=== PATIENT | female | born 1935 | race Caucasian/White ===

== ENCOUNTER 2021-01-11 08:00 | Inpatient (IN) ==
[2021-01-11] MEDS ORDERED: GLUCAGON 1 MG VIAL IM PRN ×2 (09:39)
[2021-01-11] MEDS ORDERED: DEXTROSE 50% 25 GM/50 ML VIAL IV PRN ×2 (09:39)
[2021-01-11] MEDS ORDERED: SODIUM CHLORIDE 0.9% 1,000 ML IV SCH (10:00)
[2021-01-11 10:12] LABS: Basophils % 0.4 % (0.0-0.8); Eosinophils # 0.1 10*3/uL (0.0-0.87); Eosinophils % 0.9 % (0.00-10.9); Hematocrit 33.4 VOL% (35.7-47.0); Hemoglobin 10.7 GM/DL (12.0-16.0); Immature Granulocytes % 0.3 %; Immature Granulocytes Absolute 0.03 #; Lymphocytes # 1.6 10*3/uL (1.4-4.0); Lymphocytes % 17.9 % (21.3-54.2); Mean Corpuscular Volume 99.7 FL (87-102); Mean Platelet Volume 9.6 FL (9.6-12.0); Monocytes % 10.1 % (1.7-12.7); Neutrophils % 70.4 % (38.7-73.9); Platelet Count 299 T/CUMM (130-400); Red Blood Count 3.35 MC/CUMM (3.8-5.5); Red Cell Distribution Width 14.6 % (9.3-17.3); White Blood Count 8.9 T/CUMM (4-12)
[2021-01-11 10:45] LABS: Alanine Aminotransferase 19 U/L (13-56); Albumin 3.2 G/DL (3.4-5.0); Alkaline Phosphatase 84 U/L (45-117); Aspartate Amino Transferase 12 U/L (0-37); Bilirubin,Total < 0.39 MG/DL (0.20-1.00); Blood Urea Nitrogen 25 MG/DL (7-18); Calcium 8.7 MG/DL (8.5-10.1); Carbon Dioxide 27 MMOL/L (21-32); Estimated Glom Filtration Rate 66 ML/MIN; Glucose 96 MG/DL (74-106); Potassium 4.1 MMOL/L (3.5-5.1); Sodium 143 MMOL/L (136-145); Total Protein 6.4 G/DL (6.4-8.2)
[2021-01-11 11:19] LABS: ABG Base Excess 2.9 MMOL/L (-2.5-2.5); ABG HCO3 26.9 MMOL/L (20-26); ABG Oxygen Saturation 94.6 % (95-100); ABG PCO2 47.5 MM HG (35-48); ABG PH 7.386 (7.35-7.45); ABG PO2 73.6 MM HG (80-95); ABG TCO2 25.9 MMOL/L (23-27)
[2021-01-11] MEDS ORDERED: PANTOPRAZOLE 40 MG TABLET PO ONE (11:40)
[2021-01-11] MEDS ORDERED: DIAZEPAM 5 MG TABLET PO ONE (11:40)
[2021-01-11] MEDS ORDERED: DILTIAZEM 30 MG TABLET PO PRN (12:28)
[2021-01-11] MEDS ORDERED: NITROGLYCERIN SL 0.4 MG TABLET SL PRN (12:31)
[2021-01-11] MEDS ORDERED: MORPHINE 2 MG/1 ML SYRINGE IV PRN (12:31)
[2021-01-11] MEDS ORDERED: CLORAZEPATE 3.75 MG TABLET PO PRN (12:31)
[2021-01-11] MEDS: INSULIN REGULAR 100 UNIT/ML SUBCUT SCH ×3 (14:29→20:26)
[2021-01-11] MEDS: CHLORHEXIDINE 0.12% ORAL RINSE 60 ML BOTTLE SWISH/SPIT SCH ×2 (15:03→21:19)
[2021-01-11] MEDS: CHLORHEXIDINE 4% SOLN 118 ML BOTTLE TOP SCH ×3 (15:04→21:19)
[2021-01-11] MEDS ORDERED: TEMAZEPAM 15 MG CAPSULE PO SCH (21:00)
[2021-01-11] MEDS ORDERED: GABAPENTIN 600 MG TABLET PO SCH (21:00)
[2021-01-11] MEDS: COLCHICINE 0.6 MG CAPSULE PO SCH (21:12)
[2021-01-12] MEDS ORDERED: PAPAVERINE 60 MG/2 ML VIAL ONE (04:21)
[2021-01-12] MEDS ORDERED: VANCOMYCIN 1,000 MG VIAL ONE (04:22)
[2021-01-12] MEDS ORDERED: VANCOMYCIN 500 MG VIAL ONE (04:22)
[2021-01-12] MEDS ORDERED: CEFUROXIME INJ 1,500 MG in SODIUM CHLORIDE 0.9% 100 ML IV ONE (05:00)
[2021-01-12] MEDS ORDERED: CHLORHEXIDINE 4% SOLN 118 ML BOTTLE TOP ONE (05:00)
[2021-01-12] MEDS ORDERED: PANTOPRAZOLE 40 MG TABLET PO ONE (06:00)
[2021-01-12] MEDS ORDERED: DIAZEPAM 5 MG TABLET PO ONE (06:00)
[2021-01-12] MEDS ORDERED: MIDAZOLAM 10 MG/2 ML VIAL ONE ×3 (06:07→08:49)
[2021-01-12] MEDS ORDERED: SUFentanil 250 MCG/5 ML AMP ONE ×2 (06:08)
[2021-01-12 07:46] LABS: ABG Base Excess 3.4 MMOL/L (-2.5-2.5); ABG HCO3 27.5 MMOL/L (20-26); ABG PCO2 39.4 MM HG (35-48); ABG PH 7.452 (7.35-7.45); ABG TCO2 24.9 MMOL/L (23-27); Glucose Heart Surgery 118 MG/DL (74-106); Hematocrit Heart Surgery 31.5 PERCENT (37-47); Hemoglobin Heart Surgery 10.2 G/DL (12.0-16.0); Ionized Calcium Arterial 1.19 MMOL/L (1.21-1.46); PCO2 Patient Temp Arterial 39.4 MMHG; PH Patient Temp Arterial 7.452; Patient Temperature 37 CELCIUS; Potassium Heart/CVR 3.7 MMOL/L (3.5-5.1); Sodium Heart/CVR 144 MMOL/L (135-145)
[2021-01-12] MEDS: INSULIN REGULAR 100 UNIT/ML SUBCUT SCH (07:57)
[2021-01-12] MEDS: COLCHICINE 0.6 MG CAPSULE PO SCH (08:06)
[2021-01-12] MEDS: CHLORHEXIDINE 0.12% ORAL RINSE 60 ML BOTTLE SWISH/SPIT SCH ×2 (08:06→21:10)
[2021-01-12] MEDS ORDERED: POTASSIUM CHLORIDE RIDER 20 MEQ/100 ML PREMIX IV ONE (08:14)
[2021-01-12] MEDS ORDERED: NITROPRUSSIDE 50 MG/2 ML VIAL ONE (08:14)
[2021-01-12] MEDS ORDERED: SODIUM BICARBONATE 50 MEQ/50 ML VIAL IV ONE ×2 (08:14→09:41)
[2021-01-12] MEDS ORDERED: CALCIUM CHLORIDE 1,000 MG/10 ML SYRINGE IV ONE (08:15)
[2021-01-12] MEDS ORDERED: EPINEPHrine 1 MG/10 ML SYRINGE ONE (08:15)
[2021-01-12] MEDS ORDERED: ALBUMIN 5% 12.5 GM/250 ML VIAL IV ONE ×2 (08:15→08:16)
[2021-01-12] MEDS ORDERED: HEPARIN/NACL 0.9% 2 UNITS/ML 1,000 UNIT/500 ML BAG IV ONE (08:34)
[2021-01-12 08:37] LABS: Hematocrit Heart Surgery 20.6 PERCENT (37-47); Hemoglobin Heart Surgery 6.6 G/DL (12.0-16.0); PCO2 Patient Temp Venous 32.3 MM HG; PH Patient Temp Venous 7.52; PO2 Patient Temp Venous 31.7 MM HG; VBG Base Excess 3.7 MEQ/L (0-4); VBG HCO3 27.5 MEQ/L (24-28); VBG Oxygen Saturation 76.7 %; VBG PCO2 37.4 MMHG (41-51); VBG PH 7.475; VBG PO2 39.1 MMHG (17-40); VBG Total CO2 26.2 MMOL/L
[2021-01-12] MEDS ORDERED: VECURONIUM 10 MG VIAL IV ONE ×4 (08:49→08:52)
[2021-01-12] MEDS ORDERED: LIDOCAINE 2% 5 ML VIAL ONE ×2 (08:52→09:40)
[2021-01-12] MEDS ORDERED: ETOMIDATE 40 MG/20 ML VIAL IV ONE (08:52)
[2021-01-12] MEDS ORDERED: AMINOCAPROIC ACID 5,000 MG/20 ML VIAL ONE (08:52)
[2021-01-12] MEDS ORDERED: SODIUM CHLORIDE 0.9% 100 ML IV ONE ×2 (08:53→08:54)
[2021-01-12] MEDS ORDERED: SODIUM CHLORIDE 0.9% 1,000 ML IV ONE (08:53)
[2021-01-12] MEDS ORDERED: LACTATED RINGERS 1,000 ML IV ONE (08:53)
[2021-01-12] MEDS ORDERED: SODIUM CHLORIDE 0.9% 250 ML IV ONE (08:53)
[2021-01-12 09:07] LABS: Hematocrit Heart Surgery 20.4 PERCENT (37-47); Hemoglobin Heart Surgery 6.5 G/DL (12.0-16.0); PCO2 Patient Temp Venous 35.2 MM HG; PH Patient Temp Venous 7.496; PO2 Patient Temp Venous 34.7 MM HG; Potassium Heart/CVR 4.2 MMOL/L (3.5-5.1); VBG HCO3 27.8 MEQ/L (24-28); VBG Oxygen Saturation 76.5 %; VBG PCO2 38.8 MMHG (41-51); VBG PH 7.466; VBG PO2 39.8 MMHG (17-40); VBG Total CO2 26.6 MMOL/L
[2021-01-12] MEDS ORDERED: ESMOLOL 100 MG/10 ML VIAL IV ONE (09:08)
[2021-01-12] MEDS ORDERED: CALCIUM CHLORIDE 1,000 MG/10 ML VIAL IV ONE (09:09)
[2021-01-12 09:28] LABS: Bacteria,Urine Occasional /HPF (Few); Bilirubin,Urine Negative (Negative); Blood, Urine Negative (Negative); Glucose,Urine (UA) Negative (Negative); Ketones,Urine Negative (Negative); Mucus,Urine Occasional /LPF (Occasional); Nitrite,Urine Negative (Negative); Protein,Urine Negative; RBC,Urine 2 /HPF (0-4); Squamous Epithelial Cell,Urine Occasional /HPF (0-10); Urine Appearance CLEAR (Clear); Urine Color Colorless (Yellow); Urine Specific Gravity 1.005 (1.001-1.035); Urine Urobilinogen < 2.0 EU/DL (0.2-1.0)
[2021-01-12] MEDS ORDERED: DEXTROSE 5% KCL 20 MEQ 20 MEQ/1,000 ML BAG IV ONE (09:40)
[2021-01-12] MEDS ORDERED: MAGNESIUM SULFATE 5 GM/10 ML VIAL IV ONE (09:40)
[2021-01-12] MEDS ORDERED: MANNITOL 100 GM/500 ML BAG IV ONE (09:40)
[2021-01-12] MEDS ORDERED: ALBUMIN 25% 25 GM/100 ML VIAL IV ONE (09:40)
[2021-01-12] MEDS ORDERED: methylPREDNISolone SOD SUC 1,000 MG/8 ML VIAL ONE (09:40)
[2021-01-12] MEDS ORDERED: PROTAMINE SULFATE 50 MG/5 ML VIAL IV ONE ×2 (09:41→11:20)
[2021-01-12] MEDS ORDERED: HEPARIN 10,000 UNIT/10 ML VIAL ONE (09:41)
[2021-01-12] MEDS ORDERED: FUROSEMIDE 20 MG/2 ML VIAL ONE (09:41)
[2021-01-12] MEDS ORDERED: PROTAMINE SULFATE 250 MG/25 ML VIAL IV ONE (09:41)
[2021-01-12 09:56] LABS: ABG Base Excess -0.2 MMOL/L (-2.5-2.5); ABG HCO3 24.3 MMOL/L (20-26); ABG PCO2 36.1 MM HG (35-48); ABG PH 7.429 (7.35-7.45); ABG TCO2 22.3 MMOL/L (23-27); Glucose Heart Surgery 198 MG/DL (74-106); Hematocrit Heart Surgery 24.5 PERCENT (37-47); Hemoglobin Heart Surgery 7.9 G/DL (12.0-16.0); Ionized Calcium Arterial 1.24 MMOL/L (1.21-1.46); PCO2 Patient Temp Arterial 36.1 MMHG; PH Patient Temp Arterial 7.429; Patient Temperature 37 CELCIUS; Potassium Heart/CVR 3.7 MMOL/L (3.5-5.1); Sodium Heart/CVR 136 MMOL/L (135-145)
[2021-01-12] MEDS: SODIUM CHLORIDE 0.45% 1,000 ML IV SCH (10:29)
[2021-01-12] MEDS ORDERED: SEVOFLURANE 1 UNIT/15 MINUTE INH ONE (10:35)
[2021-01-12] MEDS ORDERED: MAGNESIUM SULF RIDER 4 GM/100 ML PREMIX IV PRN (10:45)
[2021-01-12] MEDS ORDERED: INSULIN REGULAR 100 UNIT/ML IV PRN (10:45)
[2021-01-12] MEDS ORDERED: INSULIN REGULAR 100 UNIT/ML IV ONE (10:45)
[2021-01-12] MEDS ORDERED: SODIUM CHLORIDE 0.45% 1,000 ML IV SCH (10:45)
[2021-01-12] MEDS ORDERED: DEXTROSE 50% 25 GM/50 ML VIAL IV PRN ×2 (10:45)
[2021-01-12] MEDS ORDERED: POTASSIUM CHLORIDE RIDER 10 MEQ/100 ML PREMIX IV PRN (10:45)
[2021-01-12] MEDS ORDERED: INSULIN REGULAR DRIP 100 ML IV SCH (10:45)
[2021-01-12] MEDS ORDERED: MIDAZOLAM 10 MG/2 ML VIAL IV PRN (10:45)
[2021-01-12] MEDS ORDERED: LACTATED RINGERS 250 ML IV PRN (10:45)
[2021-01-12] MEDS ORDERED: MIDAZOLAM 2 MG/2 ML VIAL IV PRN (10:45)
[2021-01-12] MEDS ORDERED: CALCIUM CHLORIDE 1,000 MG/10 ML SYRINGE IV PRN (10:45)
[2021-01-12] MEDS ORDERED: ACETAMINOPHEN 650 MG SUPP RECTAL PRN (10:45)
[2021-01-12] MEDS ORDERED: CHLORHEXIDINE 4% SOLN 118 ML BOTTLE TOP PRN (10:45)
[2021-01-12] MEDS ORDERED: MAGNESIUM SULF RIDER 2 GM/50 ML PREMIX IV PRN (10:45)
[2021-01-12] MEDS ORDERED: NITROPRUSSIDE 100 MG in DEXTROSE 5% 250 ML IV PRN (10:45)
[2021-01-12] MEDS ORDERED: ONDANSETRON 4 MG/2 ML VIAL IV PRN (10:45)
[2021-01-12] MEDS ORDERED: VECURONIUM 10 MG VIAL IV PRN ×2 (10:45)
[2021-01-12] MEDS ORDERED: PHENYLEPHRINE DRIP 40 MG/250 ML PREMIX IV PRN (10:45)
[2021-01-12 10:48] LABS: ABG Base Excess 0.9 MMOL/L (-2.5-2.5); ABG HCO3 25.2 MMOL/L (20-26); ABG PCO2 35.3 MM HG (35-48); ABG TCO2 22.3 MMOL/L (23-27); Glucose Heart Surgery 167 MG/DL (74-106); Hematocrit Heart Surgery 30.2 PERCENT (37-47); Hemoglobin Heart Surgery 9.7 G/DL (12.0-16.0); Potassium Heart/CVR 3.8 MMOL/L (3.5-5.1)
[2021-01-12 10:56] LABS: Basophils % 0.2 % (0.0-0.8); Eosinophils # 0.2 10*3/uL (0.0-0.87); Eosinophils % 1.7 % (0.00-10.9); Hematocrit 29.3 VOL% (35.7-47.0); Hemoglobin 9.6 GM/DL (12.0-16.0); Immature Granulocytes % 0.7 %; Immature Granulocytes Absolute 0.09 #; Lymphocytes # 1.1 10*3/uL (1.4-4.0); Lymphocytes % 7.9 % (21.3-54.2); Mean Corpuscular HGB Conc 32.8 GM/DL (32-36); Mean Corpuscular Volume 96.4 FL (87-102); Mean Platelet Volume 9.9 FL (9.6-12.0); Neutrophils % 80.5 % (38.7-73.9); Platelet Count 229 T/CUMM (130-400); Red Blood Count 3.04 MC/CUMM (3.8-5.5); Red Cell Distribution Width 14.7 % (9.3-17.3); White Blood Count 13.3 T/CUMM (4-12)
[2021-01-12 11:04] LABS: INR 1.1; PT Patient Result 12.3 SECS (10.5-12.0); Partial Thromboplastin Time 28.3 SECS (23.9-33.8)
[2021-01-12] MEDS: POTASSIUM CHLORIDE RIDER 20 MEQ/100 ML PREMIX IV PRN ×2 (11:06→22:20)
[2021-01-12 11:11] LABS: Bilirubin,Total 0.5 MG/DL (0.20-1.00); Calcium 9.1 MG/DL (8.5-10.1); Osmolality,Calculated 283.4 MOS/KG (273-304); Potassium 3.8 MMOL/L (3.5-5.1); Total Protein 5.3 G/DL (6.4-8.2)
[2021-01-12 11:20] LABS: CKMB % 11.6 %
[2021-01-12 11:24] LABS: High Sensitive Troponin I* 3060.6 ng/L (0-54)
[2021-01-12] MEDS: ALBUMIN 5% 12.5 GM/250 ML VIAL IV PRN ×2 (11:43→16:00)
[2021-01-12 11:56] LABS: ABG Base Excess -0.7 MMOL/L (-2.5-2.5); ABG HCO3 23.9 MMOL/L (20-26); ABG PCO2 34.7 MM HG (35-48); ABG PH 7.433 (7.35-7.45); ABG TCO2 21.2 MMOL/L (23-27); Glucose Heart Surgery 169 MG/DL (74-106); Hematocrit Heart Surgery 29.3 PERCENT (37-47); Hemoglobin Heart Surgery 9.5 G/DL (12.0-16.0); Potassium Heart/CVR 4.3 MMOL/L (3.5-5.1)
[2021-01-12] MEDS ORDERED: NITROGLYCERIN DRIP 50 MG/250 ML BOTTLE IV ONE (12:25)
[2021-01-12] MEDS ORDERED: NITROGLYCERIN DRIP 50 MG/250 ML BOTTLE IV PRN (12:28)
[2021-01-12 15:52] LABS: ABG Base Excess 2.4 MMOL/L (-2.5-2.5); ABG Oxygen Saturation 97.2 % (95-100); ABG PCO2 36.4 MM HG (35-48); ABG PH 7.471 (7.35-7.45); ABG PO2 99.3 MM HG (80-95); ABG TCO2 27.1 MMOL/L (23-27); Glucose Heart Surgery 131 MG/DL (74-106); Hemoglobin Heart Surgery 10.5 G/DL (12.0-16.0); Potassium Heart/CVR 3.8 MMOL/L (3.5-5.1)
[2021-01-12] MEDS ORDERED: LACTATED RINGERS 1,000 ML IV PRN (16:42)
[2021-01-12] MEDS: CEFUROXIME INJ 1,500 MG in SODIUM CHLORIDE 0.9% 100 ML IV SCH (17:34)
[2021-01-12 17:45] LABS: ABG Base Excess 1.9 MMOL/L (-2.5-2.5); ABG HCO3 26.1 MMOL/L (20-26); ABG Oxygen Saturation 99.1 % (95-100); ABG PCO2 41.9 MM HG (35-48); ABG PH 7.412 (7.35-7.45); ABG TCO2 24.3 MMOL/L (23-27); Glucose Heart Surgery 144 MG/DL (74-106); Hematocrit Heart Surgery 29.7 PERCENT (37-47); Hemoglobin Heart Surgery 9.6 G/DL (12.0-16.0); Potassium Heart/CVR 4.7 MMOL/L (3.5-5.1)
[2021-01-12] MEDS: MORPHINE 2 MG/1 ML SYRINGE IV PRN ×2 (17:48→20:49)
[2021-01-12] MEDS: KETOROLAC 30 MG/1 ML VIAL IV SCH (18:32)
[2021-01-12 21:06] LABS: ABG Base Excess 1.5 MMOL/L (-2.5-2.5); ABG HCO3 25.7 MMOL/L (20-26); ABG Oxygen Saturation 97.2 % (95-100); ABG PCO2 41.8 MM HG (35-48); ABG PH 7.407 (7.35-7.45); ABG PO2 87.6 MM HG (80-95); Glucose Heart Surgery 141 MG/DL (74-106); Hematocrit Heart Surgery 29.4 PERCENT (37-47); Hemoglobin Heart Surgery 9.5 G/DL (12.0-16.0); Potassium Heart/CVR 4.1 MMOL/L (3.5-5.1)
[2021-01-12] MEDS ORDERED: FUROSEMIDE 40 MG/4 ML VIAL IV PRN (21:06)
[2021-01-12 21:36] LABS: CKMB % 16.2 %
[2021-01-12 22:00] LABS: ABG Base Excess 1.6 MMOL/L (-2.5-2.5); ABG HCO3 25.8 MMOL/L (20-26); ABG Oxygen Saturation 98.2 % (95-100); ABG PCO2 41.4 MM HG (35-48); ABG PH 7.411 (7.35-7.45); Glucose Heart Surgery 133 MG/DL (74-106); Hematocrit Heart Surgery 29.6 PERCENT (37-47); Hemoglobin Heart Surgery 9.6 G/DL (12.0-16.0); Potassium Heart/CVR 3.9 MMOL/L (3.5-5.1)
[2021-01-12] MEDS: MORPHINE 10 MG/1 ML VIAL IV PRN (22:43)
[2021-01-12 22:54] LABS: High Sensitive Troponin I* 44391.8 ng/L (0-54)
[2021-01-12 23:28] LABS: ABG Base Excess 1.1 MMOL/L (-2.5-2.5); ABG HCO3 25.6 MMOL/L (20-26); ABG Oxygen Saturation 96.5 % (95-100); ABG PH 7.424 (7.35-7.45); ABG PO2 90.5 MM HG (80-95); ABG TCO2 26.8 MMOL/L (23-27); Glucose Heart Surgery 114 MG/DL (74-106); Hemoglobin Heart Surgery 10.6 G/DL (12.0-16.0); Potassium Heart/CVR 4.8 MMOL/L (3.5-5.1)
[2021-01-13] MEDS: KETOROLAC 30 MG/1 ML VIAL IV SCH ×4 (00:36→18:47)
[2021-01-13 01:06] LABS: ABG Base Excess 1.9 MMOL/L (-2.5-2.5); ABG Oxygen Saturation 96.9 % (95-100); ABG PCO2 40.4 MM HG (35-48); ABG PH 7.423 (7.35-7.45); ABG PO2 84.5 MM HG (80-95); Glucose Heart Surgery 137 MG/DL (74-106); Hematocrit Heart Surgery 39.8 PERCENT (37-47); Hemoglobin Heart Surgery 12.9 G/DL (12.0-16.0); Potassium Heart/CVR 4.5 MMOL/L (3.5-5.1)
[2021-01-13] MEDS: METOPROLOL TARTRATE 25 MG TABLET PO SCH ×3 (01:42→20:45)
[2021-01-13] MEDS: DILTIAZEM 60 MG TABLET PO SCH ×2 (01:42→09:34)
[2021-01-13] MEDS: MORPHINE 10 MG/1 ML VIAL IV PRN (02:34)
[2021-01-13 03:08] LABS: Basophils % 0.1 % (0.0-0.8); Hematocrit 31.4 VOL% (35.7-47.0); Hemoglobin 10.4 GM/DL (12.0-16.0); Immature Granulocytes % 0.4 %; Immature Granulocytes Absolute 0.05 #; Lymphocytes # 0.6 10*3/uL (1.4-4.0); Lymphocytes % 4.7 % (21.3-54.2); Mean Corpuscular HGB Conc 33.1 GM/DL (32-36); Mean Corpuscular Volume 91.5 FL (87-102); Mean Platelet Volume 10.3 FL (9.6-12.0); Monocytes % 5.4 % (1.7-12.7); Neutrophils % 89.4 % (38.7-73.9); Platelet Count 224 T/CUMM (130-400); Red Blood Count 3.43 MC/CUMM (3.8-5.5); Red Cell Distribution Width 16.7 % (9.3-17.3); White Blood Count 12.7 T/CUMM (4-12)
[2021-01-13 03:12] LABS: ABG Base Excess 1.8 MMOL/L (-2.5-2.5); ABG Oxygen Saturation 97.3 % (95-100); ABG PCO2 42.4 MM HG (35-48); ABG PH 7.407 (7.35-7.45); ABG PO2 88.4 MM HG (80-95); ABG TCO2 24.1 MMOL/L (23-27); Glucose Heart Surgery 126 MG/DL (74-106); Hematocrit Heart Surgery 32.7 PERCENT (37-47); Hemoglobin Heart Surgery 10.6 G/DL (12.0-16.0); Potassium Heart/CVR 4.1 MMOL/L (3.5-5.1)
[2021-01-13 03:34] LABS: Albumin 3.5 G/DL (3.4-5.0); Bilirubin,Direct 0.13 MG/DL (0.0-0.20); Bilirubin,Total 0.5 MG/DL (0.20-1.00); Calcium 8.5 MG/DL (8.5-10.1); Osmolality,Calculated 285.3 MOS/KG (273-304); Potassium 4.1 MMOL/L (3.5-5.1); Total Protein 5.7 G/DL (6.4-8.2)
[2021-01-13 03:42] LABS: CKMB % 14.3 %; High Sensitive Troponin I* 51947.2 ng/L (0-54)
[2021-01-13 03:51] LABS: Lymphocytes 4 % (20-55); Segmented Neutrophils 94 % (50-85); Total Cells Counted 100
[2021-01-13 03:52] LABS: Microcytosis 1+
[2021-01-13 03:53] LABS: Platelet Estimate Adequate; Spherocytes Slight
[2021-01-13] MEDS: POTASSIUM CHLORIDE RIDER 20 MEQ/100 ML PREMIX IV PRN (04:14)
[2021-01-13] MEDS: MORPHINE 2 MG/1 ML SYRINGE IV PRN (04:48)
[2021-01-13] MEDS: CEFUROXIME INJ 1,500 MG in SODIUM CHLORIDE 0.9% 100 ML IV SCH (06:02)
[2021-01-13] MEDS ORDERED: OXYMETAZOLINE 0.05% NASAL SPRAY 15 ML BOTTLE BOTH NARES PRN (07:10)
[2021-01-13] MEDS ORDERED: INSULIN REGULAR 100 UNIT/ML SUBCUT SCH (08:00)
[2021-01-13] MEDS: CHLORHEXIDINE 0.12% ORAL RINSE 60 ML BOTTLE SWISH/SPIT SCH ×2 (08:15→23:40)
[2021-01-13] MEDS: oxyCODONE/ACETAMINOPHEN 5-325 MG TABLET PO PRN ×2 (09:15→22:06)
[2021-01-13] MEDS: DILTIAZEM 30 MG TABLET PO SCH ×3 (09:37→20:45)
[2021-01-13] MEDS ORDERED: METHEN/SOD PHOS/METH BLUE/HYOS TABLET PO SCH (11:10)
[2021-01-13] MEDS ORDERED: ALUMINUM/MAGNES/SIMETH MAX STR 30 ML UDCUP PO PRN (11:32)
[2021-01-13] MEDS ORDERED: MAGNESIUM SULF RIDER 2 GM/50 ML PREMIX IV PRN (11:32)
[2021-01-13] MEDS ORDERED: MAGNESIUM HYDROXIDE SUSP 30 ML UDCUP PO PRN (11:32)
[2021-01-13] MEDS ORDERED: KETOROLAC 30 MG/1 ML VIAL IV SCH (11:32)
[2021-01-13] MEDS ORDERED: DEXTROSE 50% 25 GM/50 ML VIAL IV PRN ×2 (11:32)
[2021-01-13] MEDS ORDERED: GLUCAGON 1 MG VIAL IM PRN ×2 (11:32)
[2021-01-13] MEDS ORDERED: POTASSIUM CHLORIDE 20 MEQ TABLET PO PRN (11:32)
[2021-01-13] MEDS ORDERED: SODIUM CHLOR 0.45% KCL 20 MEQ 20 MEQ/1,000 ML BAG IV SCH (11:32)
[2021-01-13] MEDS ORDERED: ACETAMINOPHEN 325 MG TABLET PO PRN (11:32)
[2021-01-13] MEDS ORDERED: MAGNESIUM SULF RIDER 4 GM/100 ML PREMIX IV PRN (11:32)
[2021-01-13] MEDS ORDERED: ZALEPLON 5 MG CAPSULE PO PRN (11:32)
[2021-01-13] MEDS: METHEN/SOD PHOS/METH BLUE/HYOS TABLET PO PRN ×2 (11:37→20:47)
[2021-01-13] MEDS: SODIUM CHLORIDE 0.45% 1,000 ML IV SCH (11:47)
[2021-01-13] MEDS ORDERED: SODIUM PHOSPHATE ENEMA 133 ML BOTTLE RECTAL ONE (12:45)
[2021-01-13] MEDS ORDERED: GLYCERIN ADULT SUPP RECTAL ONE (13:21)
[2021-01-13 14:43] LABS: CKMB % 9.9 %; High Sensitive Troponin I* 33305.7 ng/L (0-54)
[2021-01-13] MEDS: CLORAZEPATE 3.75 MG TABLET PO PRN ×2 (15:06→20:46)
[2021-01-13] MEDS ORDERED: POLYETHYLENE GLYCOL POWDER 17 GM PACK PO PRN (18:14)
[2021-01-13] MEDS: OLMESARTAN 20 MG TABLET PO SCH (20:44)
[2021-01-13] MEDS: HYDROmorphone 2 MG/1 ML VIAL IV PRN (22:46)
[2021-01-14] MEDS: KETOROLAC 30 MG/1 ML VIAL IV SCH (00:22)
[2021-01-14] MEDS: ONDANSETRON 4 MG/2 ML VIAL IV PRN ×3 (00:22→13:49)
[2021-01-14] MEDS: CLORAZEPATE 3.75 MG TABLET PO PRN ×3 (04:33→15:49)
[2021-01-14 04:45] LABS: Basophils % 0.1 % (0.0-0.8); Hematocrit 36.1 VOL% (35.7-47.0); Hemoglobin 11.2 GM/DL (12.0-16.0); Immature Granulocytes % 0.5 %; Immature Granulocytes Absolute 0.08 #; Lymphocytes # 1.2 10*3/uL (1.4-4.0); Lymphocytes % 7.5 % (21.3-54.2); Mean Corpuscular Volume 95.5 FL (87-102); Mean Platelet Volume 10.8 FL (9.6-12.0); Monocytes % 8.8 % (1.7-12.7); Neutrophils % 83.1 % (38.7-73.9); Platelet Count 226 T/CUMM (130-400); Red Blood Count 3.78 MC/CUMM (3.8-5.5); Red Cell Distribution Width 16.7 % (9.3-17.3); White Blood Count 16.3 T/CUMM (4-12)
[2021-01-14 05:15] LABS: Alanine Aminotransferase 93 U/L (13-56); Albumin 3.3 G/DL (3.4-5.0); Alkaline Phosphatase 82 U/L (45-117); Aspartate Amino Transferase 142 U/L (0-37); Bilirubin,Direct < 0.100 MG/DL (0.0-0.20); Bilirubin,Indirect 0.4 MG/DL (0.0-1.0); Blood Urea Nitrogen 47 MG/DL (7-18); CKMB % 5.5 %; Calcium 8.4 MG/DL (8.5-10.1); Carbon Dioxide 28 MMOL/L (21-32); Estimated Glom Filtration Rate 52 ML/MIN; Glucose 169 MG/DL (74-106); Potassium 4.8 MMOL/L (3.5-5.1); Sodium 136 MMOL/L (136-145); Total Protein 6.1 G/DL (6.4-8.2)
[2021-01-14] MEDS ORDERED: FUROSEMIDE 40 MG/4 ML VIAL IV ONE (06:00)
[2021-01-14] MEDS: oxyCODONE/ACETAMINOPHEN 5-325 MG TABLET PO PRN ×2 (06:25→18:04)
[2021-01-14] MEDS ORDERED: PANTOPRAZOLE 40 MG TABLET PO SCH (09:00)
[2021-01-14] MEDS: DOXAZOSIN 1 MG TABLET PO SCH (09:21)
[2021-01-14] MEDS: FERROUS SULFATE 325 MG TABLET PO SCH (09:21)
[2021-01-14] MEDS: DOCUSATE SODIUM 100 MG CAPSULE PO SCH (09:21)
[2021-01-14] MEDS: DILTIAZEM 30 MG TABLET PO SCH ×3 (09:21→20:52)
[2021-01-14] MEDS: METOPROLOL TARTRATE 25 MG TABLET PO SCH ×2 (09:21→20:52)
[2021-01-14] MEDS: metFORMIN 500 MG TABLET PO SCH (09:21)
[2021-01-14] MEDS: MELOXICAM 7.5 MG TABLET PO SCH (09:22)
[2021-01-14] MEDS: PANTOPRAZOLE 40 MG TABLET PO SCH (09:22)
[2021-01-14] MEDS: CHLORHEXIDINE 0.12% ORAL RINSE 60 ML BOTTLE SWISH/SPIT SCH (09:22)
[2021-01-14] MEDS: allopurinoL 300 MG TABLET PO SCH (09:22)
[2021-01-14] MEDS: POLYETHYLENE GLYCOL POWDER 17 GM PACK PO SCH (09:22)
[2021-01-14] MEDS: ASPIRIN EC 325 MG TABLET PO SCH (09:23)
[2021-01-14] MEDS: HYDROmorphone 2 MG/1 ML VIAL IV PRN ×2 (09:56→13:50)
[2021-01-14] MEDS ORDERED: ONDANSETRON 4 MG/2 ML VIAL IV PRN (17:07)
[2021-01-14] MEDS ORDERED: POTASSIUM CHLORIDE 20 MEQ TABLET PO PRN (17:07)
[2021-01-14] MEDS ORDERED: MAGNESIUM SULF RIDER 2 GM/50 ML PREMIX IV PRN (17:07)
[2021-01-14] MEDS ORDERED: ZALEPLON 5 MG CAPSULE PO PRN (17:07)
[2021-01-14] MEDS ORDERED: MAGNESIUM SULF RIDER 4 GM/100 ML PREMIX IV PRN (17:07)
[2021-01-14] MEDS ORDERED: GLUCAGON 1 MG VIAL IM PRN (17:07)
[2021-01-14] MEDS ORDERED: MAGNESIUM HYDROXIDE SUSP 30 ML UDCUP PO PRN (17:07)
[2021-01-14] MEDS ORDERED: DEXTROSE 50% 25 GM/50 ML VIAL IV PRN (17:07)
[2021-01-14] MEDS ORDERED: ALUMINUM/MAGNES/SIMETH MAX STR 30 ML UDCUP PO PRN (17:07)
[2021-01-14] MEDS ORDERED: ACETAMINOPHEN 325 MG TABLET PO PRN (17:07)
[2021-01-14] MEDS ORDERED: SODIUM PHOSPHATE ENEMA 133 ML BOTTLE RECTAL ONE (19:20)
[2021-01-14] MEDS: GABAPENTIN 600 MG TABLET PO SCH (20:52)
[2021-01-14] MEDS: TEMAZEPAM 15 MG CAPSULE PO SCH (20:52)
[2021-01-14] MEDS: OLMESARTAN 20 MG TABLET PO SCH (20:52)
[2021-01-15 05:13] LABS: Basophils % 0.1 % (0.0-0.8); Eosinophils % 0.3 % (0.00-10.9); Hematocrit 30.7 VOL% (35.7-47.0); Immature Granulocytes % 0.5 %; Immature Granulocytes Absolute 0.05 #; Lymphocytes # 1.6 10*3/uL (1.4-4.0); Mean Corpuscular HGB Conc 32.6 GM/DL (32-36); Mean Corpuscular Volume 97.2 FL (87-102); Mean Platelet Volume 10.9 FL (9.6-12.0); Monocytes % 9.5 % (1.7-12.7); Neutrophils % 74.6 % (38.7-73.9); Platelet Count 183 T/CUMM (130-400); Red Blood Count 3.16 MC/CUMM (3.8-5.5); Red Cell Distribution Width 16.2 % (9.3-17.3); White Blood Count 10.4 T/CUMM (4-12)
[2021-01-15 05:33] LABS: Alanine Aminotransferase 66 U/L (13-56); Albumin 2.9 G/DL (3.4-5.0); Alkaline Phosphatase 70 U/L (45-117); Aspartate Amino Transferase 78 U/L (0-37); Bilirubin,Direct < 0.100 MG/DL (0.0-0.20); Bilirubin,Total < 0.39 MG/DL (0.20-1.00); Blood Urea Nitrogen 56 MG/DL (7-18); CKMB % 2.8 %; Calcium 8.2 MG/DL (8.5-10.1); Carbon Dioxide 32 MMOL/L (21-32); Estimated Glom Filtration Rate 59 ML/MIN; Glucose 105 MG/DL (74-106); Osmolality,Calculated 290.7 MOS/KG (273-304); Potassium 4.3 MMOL/L (3.5-5.1); Sodium 138 MMOL/L (136-145); Total Protein 5.4 G/DL (6.4-8.2)
[2021-01-15 05:38] LABS: Bilirubin,Indirect 0.3 MG/DL (0.0-1.0)
[2021-01-15] MEDS ORDERED: FUROSEMIDE 40 MG/4 ML VIAL IV ONE (06:00)
[2021-01-15] MEDS: MELOXICAM 7.5 MG TABLET PO SCH (09:17)
[2021-01-15] MEDS: POLYETHYLENE GLYCOL POWDER 17 GM PACK PO SCH (09:17)
[2021-01-15] MEDS: DOXAZOSIN 1 MG TABLET PO SCH (09:17)
[2021-01-15] MEDS: FERROUS SULFATE 325 MG TABLET PO SCH (09:17)
[2021-01-15] MEDS: DOCUSATE SODIUM 100 MG CAPSULE PO SCH (09:17)
[2021-01-15] MEDS: COLCHICINE 0.6 MG CAPSULE PO SCH ×2 (09:17→20:24)
[2021-01-15] MEDS: ASPIRIN EC 325 MG TABLET PO SCH (09:18)
[2021-01-15] MEDS: METOPROLOL TARTRATE 25 MG TABLET PO SCH ×2 (09:18→20:23)
[2021-01-15] MEDS: allopurinoL 300 MG TABLET PO SCH (09:18)
[2021-01-15] MEDS: DILTIAZEM 30 MG TABLET PO SCH (09:19)
[2021-01-15] MEDS: metFORMIN 500 MG TABLET PO SCH (09:20)
[2021-01-15] MEDS: PANTOPRAZOLE 40 MG TABLET PO SCH (09:20)
[2021-01-15] MEDS: oxyCODONE/ACETAMINOPHEN 5-325 MG TABLET PO PRN ×2 (10:00→14:29)
[2021-01-15] MEDS ORDERED: AZITHROMYCIN 250 MG TABLET PO ONE (10:37)
[2021-01-15] MEDS: ALBUTEROL/IPRATROPIUM 3 ML NEB RESP TX SCH ×4 (11:06→23:40)
[2021-01-15] MEDS: INSULIN LISPRO 100 UNIT/ML SUBCUT SCH ×3 (12:52→20:23)
[2021-01-15] MEDS: ASCORBIC ACID 500 MG TABLET PO SCH (20:23)
[2021-01-15] MEDS: TEMAZEPAM 15 MG CAPSULE PO SCH (20:23)
[2021-01-15] MEDS: GABAPENTIN 600 MG TABLET PO SCH (20:23)
[2021-01-15] MEDS ORDERED: OLMESARTAN 5 MG TABLET PO SCH (21:00)
[2021-01-16 05:11] LABS: Basophils % 0.1 % (0.0-0.8); Eosinophils # 0.2 10*3/uL (0.0-0.87); Eosinophils % 1.5 % (0.00-10.9); Hematocrit 31.8 VOL% (35.7-47.0); Immature Granulocytes % 0.7 %; Immature Granulocytes Absolute 0.07 #; Lymphocytes # 1.4 10*3/uL (1.4-4.0); Mean Corpuscular HGB Conc 31.4 GM/DL (32-36); Mean Corpuscular Volume 97.8 FL (87-102); Mean Platelet Volume 10.9 FL (9.6-12.0); Neutrophils % 73.7 % (38.7-73.9); Platelet Count 194 T/CUMM (130-400); Red Blood Count 3.25 MC/CUMM (3.8-5.5); White Blood Count 9.8 T/CUMM (4-12)
[2021-01-16 05:21] LABS: Alanine Aminotransferase 68 U/L (13-56); Albumin 2.8 G/DL (3.4-5.0); Alkaline Phosphatase 72 U/L (45-117); Aspartate Amino Transferase 64 U/L (0-37); Bilirubin,Direct < 0.100 MG/DL (0.0-0.20); Bilirubin,Indirect 0.3 MG/DL (0.0-1.0); Blood Urea Nitrogen 56 MG/DL (7-18); Calcium 7.8 MG/DL (8.5-10.1); Carbon Dioxide 31 MMOL/L (21-32); Estimated Glom Filtration Rate 47 ML/MIN; Glucose 110 MG/DL (74-106); Osmolality,Calculated 299.1 MOS/KG (273-304); Potassium 4.2 MMOL/L (3.5-5.1); Sodium 142 MMOL/L (136-145); Total Protein 5.5 G/DL (6.4-8.2)
[2021-01-16] MEDS: ALBUTEROL/IPRATROPIUM 3 ML NEB RESP TX SCH ×4 (07:15→18:58)
[2021-01-16] MEDS ORDERED: AZITHROMYCIN 250 MG TABLET PO SCH (09:00)
[2021-01-16] MEDS: INSULIN LISPRO 100 UNIT/ML SUBCUT SCH ×4 (09:26→21:51)
[2021-01-16] MEDS: MELOXICAM 7.5 MG TABLET PO SCH (09:27)
[2021-01-16] MEDS: ASPIRIN EC 325 MG TABLET PO SCH (09:27)
[2021-01-16] MEDS: metFORMIN 500 MG TABLET PO SCH (09:27)
[2021-01-16] MEDS: PANTOPRAZOLE 40 MG TABLET PO SCH (09:27)
[2021-01-16] MEDS: POLYETHYLENE GLYCOL POWDER 17 GM PACK PO SCH (09:27)
[2021-01-16] MEDS: COLCHICINE 0.6 MG CAPSULE PO SCH (09:27)
[2021-01-16] MEDS: FERROUS SULFATE 325 MG TABLET PO SCH (09:28)
[2021-01-16] MEDS: ASCORBIC ACID 500 MG TABLET PO SCH ×2 (09:28→21:28)
[2021-01-16] MEDS: allopurinoL 300 MG TABLET PO SCH (09:28)
[2021-01-16] MEDS: DOCUSATE SODIUM 100 MG CAPSULE PO SCH (09:28)
[2021-01-16] MEDS: oxyCODONE/ACETAMINOPHEN 5-325 MG TABLET PO PRN ×3 (09:34→21:35)
[2021-01-16] MEDS: METOPROLOL TARTRATE 25 MG TABLET PO SCH (10:12)
[2021-01-16] MEDS ORDERED: KETOROLAC 15 MG/1 ML VIAL IV ONE (10:40)
[2021-01-16] MEDS ORDERED: AMIODARONE INJ 150 MG in DEXTROSE 5% 100 ML IV ONE (19:59)
[2021-01-16] MEDS ORDERED: DILTIAZEM 50 MG/10 ML VIAL IV ONE (20:06)
[2021-01-16] MEDS ORDERED: AMIODARONE INJ 450 MG in DEXTROSE 5% 241 ML IV SCH (20:30)
[2021-01-16] MEDS: GABAPENTIN 600 MG TABLET PO SCH (21:27)
[2021-01-16] MEDS: OLMESARTAN 5 MG TABLET PO SCH (21:27)
[2021-01-16] MEDS: TEMAZEPAM 15 MG CAPSULE PO SCH (21:27)
[2021-01-17] MEDS: ALBUTEROL/IPRATROPIUM 3 ML NEB RESP TX SCH ×5 (02:33→19:09)
[2021-01-17 05:40] LABS: Basophils % 0.1 % (0.0-0.8); Eosinophils # 0.4 10*3/uL (0.0-0.87); Eosinophils % 4.4 % (0.00-10.9); Hematocrit 30.9 VOL% (35.7-47.0); Hemoglobin 9.6 GM/DL (12.0-16.0); Immature Granulocytes % 0.9 %; Immature Granulocytes Absolute 0.09 #; Lymphocytes # 1.4 10*3/uL (1.4-4.0); Lymphocytes % 13.9 % (21.3-54.2); Mean Corpuscular HGB Conc 31.1 GM/DL (32-36); Mean Corpuscular Volume 99.4 FL (87-102); Mean Platelet Volume 11.2 FL (9.6-12.0); Monocytes % 11.4 % (1.7-12.7); Neutrophils % 69.3 % (38.7-73.9); Platelet Count 205 T/CUMM (130-400); Red Blood Count 3.11 MC/CUMM (3.8-5.5); Red Cell Distribution Width 16.3 % (9.3-17.3); White Blood Count 10.1 T/CUMM (4-12)
[2021-01-17 06:13] LABS: Alanine Aminotransferase 72 U/L (13-56); Albumin 2.8 G/DL (3.4-5.0); Alkaline Phosphatase 78 U/L (45-117); Aspartate Amino Transferase 108 U/L (0-37); Bilirubin,Direct < 0.100 MG/DL (0.0-0.20); Bilirubin,Indirect 0.3 MG/DL (0.0-1.0); Bilirubin,Total < 0.39 MG/DL (0.20-1.00); Blood Urea Nitrogen 44 MG/DL (7-18); CKMB % 10.7 %; Carbon Dioxide 30 MMOL/L (21-32); Estimated Glom Filtration Rate 47 ML/MIN; Glucose 131 MG/DL (74-106); Osmolality,Calculated 293.3 MOS/KG (273-304); Potassium 4.1 MMOL/L (3.5-5.1); Sodium 141 MMOL/L (136-145); Total Protein 5.5 G/DL (6.4-8.2)
[2021-01-17] MEDS: DILTIAZEM INJ 100 MG in SODIUM CHLORIDE 0.9% 100 ML IV SCH ×2 (06:23→21:58)
[2021-01-17] MEDS: INSULIN LISPRO 100 UNIT/ML SUBCUT SCH ×4 (07:58→21:30)
[2021-01-17] MEDS: oxyCODONE/ACETAMINOPHEN 5-325 MG TABLET PO PRN ×2 (08:02→21:25)
[2021-01-17] MEDS ORDERED: FUROSEMIDE 40 MG/4 ML VIAL IV ONE (09:18)
[2021-01-17] MEDS: POLYETHYLENE GLYCOL POWDER 17 GM PACK PO SCH (09:49)
[2021-01-17] MEDS: DOCUSATE SODIUM 100 MG CAPSULE PO SCH (09:51)
[2021-01-17] MEDS: FERROUS SULFATE 325 MG TABLET PO SCH (09:52)
[2021-01-17] MEDS: ASPIRIN EC 325 MG TABLET PO SCH (09:53)
[2021-01-17] MEDS: allopurinoL 300 MG TABLET PO SCH (09:54)
[2021-01-17] MEDS: PANTOPRAZOLE 40 MG TABLET PO SCH (09:54)
[2021-01-17] MEDS: ASCORBIC ACID 500 MG TABLET PO SCH ×2 (09:54→21:26)
[2021-01-17] MEDS: AMIODARONE 200 MG TABLET PO SCH ×2 (09:54→21:26)
[2021-01-17] MEDS: metFORMIN 500 MG TABLET PO SCH (09:54)
[2021-01-17] MEDS: MELOXICAM 7.5 MG TABLET PO SCH (09:59)
[2021-01-17] MEDS: DILTIAZEM 30 MG TABLET PO SCH ×2 (17:47→23:45)
[2021-01-17] MEDS: TEMAZEPAM 15 MG CAPSULE PO SCH (21:25)
[2021-01-17] MEDS: GABAPENTIN 600 MG TABLET PO SCH (21:25)
[2021-01-17] MEDS: OLMESARTAN 5 MG TABLET PO SCH (21:26)
[2021-01-18] MEDS: ALBUTEROL/IPRATROPIUM 3 ML NEB RESP TX SCH ×2 (00:41→07:40)
[2021-01-18] MEDS ORDERED: AMIODARONE INJ 100 MG in DEXTROSE 5% 100 ML IV ONE (01:07)
[2021-01-18 04:56] LABS: Basophils % 0.2 % (0.0-0.8); Eosinophils # 0.4 10*3/uL (0.0-0.87); Hematocrit 31.2 VOL% (35.7-47.0); Hemoglobin 9.8 GM/DL (12.0-16.0); Immature Granulocytes % 0.6 %; Immature Granulocytes Absolute 0.07 #; Lymphocytes # 1.4 10*3/uL (1.4-4.0); Lymphocytes % 12.6 % (21.3-54.2); Mean Corpuscular HGB Conc 31.4 GM/DL (32-36); Mean Corpuscular Volume 97.5 FL (87-102); Mean Platelet Volume 10.6 FL (9.6-12.0); Monocytes % 10.5 % (1.7-12.7); Neutrophils % 72.1 % (38.7-73.9); Platelet Count 221 T/CUMM (130-400); Red Cell Distribution Width 16.1 % (9.3-17.3); White Blood Count 11.1 T/CUMM (4-12)
[2021-01-18 06:03] LABS: Albumin 2.7 G/DL (3.4-5.0); Bilirubin,Direct 0.11 MG/DL (0.0-0.20); Bilirubin,Indirect 0.4 MG/DL (0.0-1.0); Bilirubin,Total 0.5 MG/DL (0.20-1.00); CKMB % 4.4 %; Calcium 8.2 MG/DL (8.5-10.1); High Sensitive Troponin I* 18088.9 ng/L (0-54); Osmolality,Calculated 286.3 MOS/KG (273-304); Potassium 4.3 MMOL/L (3.5-5.1); Total Protein 5.6 G/DL (6.4-8.2)
[2021-01-18] MEDS: DILTIAZEM 30 MG TABLET PO SCH (06:34)
[2021-01-18] MEDS: DILTIAZEM 60 MG TABLET PO SCH ×3 (08:19→17:57)
[2021-01-18] MEDS: ASPIRIN EC 325 MG TABLET PO SCH (08:20)
[2021-01-18] MEDS: MELOXICAM 7.5 MG TABLET PO SCH (08:20)
[2021-01-18] MEDS: ASCORBIC ACID 500 MG TABLET PO SCH ×2 (08:20→20:28)
[2021-01-18] MEDS: PANTOPRAZOLE 40 MG TABLET PO SCH (08:20)
[2021-01-18] MEDS: metFORMIN 500 MG TABLET PO SCH (08:21)
[2021-01-18] MEDS: AMIODARONE 200 MG TABLET PO SCH ×2 (08:21→20:28)
[2021-01-18] MEDS: allopurinoL 300 MG TABLET PO SCH (08:21)
[2021-01-18] MEDS: oxyCODONE/ACETAMINOPHEN 5-325 MG TABLET PO PRN ×3 (08:29→20:28)
[2021-01-18] MEDS: INSULIN LISPRO 100 UNIT/ML SUBCUT SCH ×4 (08:38→20:25)
[2021-01-18] MEDS: DOCUSATE SODIUM 100 MG CAPSULE PO SCH (10:16)
[2021-01-18] MEDS: FERROUS SULFATE 325 MG TABLET PO SCH (10:16)
[2021-01-18] MEDS: POLYETHYLENE GLYCOL POWDER 17 GM PACK PO SCH (10:16)
[2021-01-18] MEDS ORDERED: ALBUTEROL/IPRATROPIUM 3 ML NEB RESP TX PRN (10:44)
[2021-01-18] MEDS: APIXABAN 5 MG TABLET PO SCH ×2 (12:23→20:29)
[2021-01-18] MEDS ORDERED: DIGOXIN 0.5 MG/2 ML AMP IV ONE (13:29)
[2021-01-18] MEDS: DILTIAZEM INJ 100 MG in SODIUM CHLORIDE 0.9% 100 ML IV SCH (20:25)
[2021-01-18] MEDS: GABAPENTIN 600 MG TABLET PO SCH (20:29)
[2021-01-18] MEDS: TEMAZEPAM 15 MG CAPSULE PO SCH (20:30)
[2021-01-18] MEDS: OLMESARTAN 5 MG TABLET PO SCH (20:30)
[2021-01-19] MEDS ORDERED: SODIUM CHLORIDE 0.9% 500 ML IV ONE (00:30)
[2021-01-19] MEDS: DILTIAZEM 60 MG TABLET PO SCH ×2 (00:31→08:59)
[2021-01-19] MEDS: SODIUM CHLORIDE 0.9% 1,000 ML IV SCH ×3 (01:31→21:57)
[2021-01-19 04:49] LABS: Basophils % 0.2 % (0.0-0.8); Eosinophils # 0.6 10*3/uL (0.0-0.87); Eosinophils % 5.4 % (0.00-10.9); Hematocrit 31.5 VOL% (35.7-47.0); Hemoglobin 9.7 GM/DL (12.0-16.0); Immature Granulocytes % 0.6 %; Immature Granulocytes Absolute 0.07 #; Lymphocytes # 1.3 10*3/uL (1.4-4.0); Lymphocytes % 11.8 % (21.3-54.2); Mean Corpuscular HGB Conc 30.8 GM/DL (32-36); Mean Corpuscular Volume 99.7 FL (87-102); Mean Platelet Volume 10.4 FL (9.6-12.0); Monocytes % 9.8 % (1.7-12.7); Neutrophils % 72.2 % (38.7-73.9); Platelet Count 230 T/CUMM (130-400); Red Blood Count 3.16 MC/CUMM (3.8-5.5); White Blood Count 11.3 T/CUMM (4-12)
[2021-01-19 05:18] LABS: Alanine Aminotransferase 46 U/L (13-56); Albumin 2.6 G/DL (3.4-5.0); Alkaline Phosphatase 67 U/L (45-117); Aspartate Amino Transferase 45 U/L (0-37); Bilirubin,Direct < 0.100 MG/DL (0.0-0.20); Bilirubin,Indirect 0.3 MG/DL (0.0-1.0); Bilirubin,Total < 0.39 MG/DL (0.20-1.00); Blood Urea Nitrogen 24 MG/DL (7-18); Calcium 8.2 MG/DL (8.5-10.1); Carbon Dioxide 31 MMOL/L (21-32); Estimated Glom Filtration Rate 66 ML/MIN; Glucose 113 MG/DL (74-106); Osmolality,Calculated 281.5 MOS/KG (273-304); Potassium 4.9 MMOL/L (3.5-5.1); Sodium 139 MMOL/L (136-145); Total Protein 5.4 G/DL (6.4-8.2)
[2021-01-19] MEDS: INSULIN LISPRO 100 UNIT/ML SUBCUT SCH ×4 (09:01→21:14)
[2021-01-19] MEDS: ASCORBIC ACID 500 MG TABLET PO SCH ×2 (09:02→20:50)
[2021-01-19] MEDS: MELOXICAM 7.5 MG TABLET PO SCH (09:03)
[2021-01-19] MEDS: FERROUS SULFATE 325 MG TABLET PO SCH (09:04)
[2021-01-19] MEDS: ASPIRIN EC 325 MG TABLET PO SCH (09:04)
[2021-01-19] MEDS: AMIODARONE 200 MG TABLET PO SCH ×2 (09:05→20:51)
[2021-01-19] MEDS: APIXABAN 5 MG TABLET PO SCH ×2 (09:05→20:50)
[2021-01-19] MEDS: PANTOPRAZOLE 40 MG TABLET PO SCH (09:05)
[2021-01-19] MEDS: allopurinoL 300 MG TABLET PO SCH (09:06)
[2021-01-19] MEDS: POLYETHYLENE GLYCOL POWDER 17 GM PACK PO SCH (09:08)
[2021-01-19] MEDS: DOCUSATE SODIUM 100 MG CAPSULE PO SCH (09:08)
[2021-01-19] MEDS: metFORMIN 500 MG TABLET PO SCH (09:08)
[2021-01-19] MEDS: oxyCODONE/ACETAMINOPHEN 5-325 MG TABLET PO PRN ×2 (09:18→20:50)
[2021-01-19] MEDS ORDERED: DILTIAZEM 60 MG TABLET PO SCH (12:00)
[2021-01-19] MEDS ORDERED: DILTIAZEM 30 MG TABLET PO SCH (12:00)
[2021-01-19] MEDS: DILTIAZEM 30 MG TABLET PO SCH ×3 (15:00→23:04)
[2021-01-19] MEDS: GABAPENTIN 600 MG TABLET PO SCH (20:49)
[2021-01-19] MEDS: TEMAZEPAM 15 MG CAPSULE PO SCH (20:49)
[2021-01-19] MEDS: DILTIAZEM INJ 100 MG in SODIUM CHLORIDE 0.9% 100 ML IV SCH (21:58)
[2021-01-20] MEDS: DILTIAZEM 30 MG TABLET PO SCH ×3 (05:57→18:13)
[2021-01-20] MEDS: SODIUM CHLORIDE 0.9% 1,000 ML IV SCH ×2 (05:59→16:45)
[2021-01-20] MEDS: INSULIN LISPRO 100 UNIT/ML SUBCUT SCH ×4 (10:10→21:47)
[2021-01-20] MEDS: metFORMIN 500 MG TABLET PO SCH (10:12)
[2021-01-20] MEDS: ASCORBIC ACID 500 MG TABLET PO SCH ×2 (10:12→20:48)
[2021-01-20] MEDS: MELOXICAM 7.5 MG TABLET PO SCH (10:12)
[2021-01-20] MEDS: APIXABAN 5 MG TABLET PO SCH ×2 (10:13→20:48)
[2021-01-20] MEDS: PANTOPRAZOLE 40 MG TABLET PO SCH (10:13)
[2021-01-20] MEDS: FERROUS SULFATE 325 MG TABLET PO SCH (10:13)
[2021-01-20] MEDS: ASPIRIN EC 325 MG TABLET PO SCH (10:13)
[2021-01-20] MEDS: allopurinoL 300 MG TABLET PO SCH (10:14)
[2021-01-20] MEDS: oxyCODONE/ACETAMINOPHEN 5-325 MG TABLET PO PRN ×3 (10:14→22:16)
[2021-01-20] MEDS: AMIODARONE 200 MG TABLET PO SCH ×2 (10:17→20:48)
[2021-01-20] MEDS: POLYETHYLENE GLYCOL POWDER 17 GM PACK PO SCH (10:17)
[2021-01-20] MEDS: DOCUSATE SODIUM 100 MG CAPSULE PO SCH (10:18)
[2021-01-20] MEDS: GABAPENTIN 600 MG TABLET PO SCH (20:48)
[2021-01-20] MEDS: TEMAZEPAM 15 MG CAPSULE PO SCH (20:48)
[2021-01-20] MEDS: DILTIAZEM INJ 100 MG in SODIUM CHLORIDE 0.9% 100 ML IV SCH (22:13)
[2021-01-21] MEDS: SODIUM CHLORIDE 0.9% 1,000 ML IV SCH (03:33)
[2021-01-21] MEDS: DILTIAZEM 30 MG TABLET PO SCH (03:33)
[2021-01-21] MEDS ORDERED: ASPIRIN EC 81 MG TABLET PO SCH (09:00)
[2021-01-21] MEDS ORDERED: DILTIAZEM CD 120 MG CAPSULE PO SCH (09:00)
[2021-01-21] MEDS: INSULIN LISPRO 100 UNIT/ML SUBCUT SCH (10:05)
[2021-01-21] MEDS: MELOXICAM 7.5 MG TABLET PO SCH (10:07)
[2021-01-21] MEDS: oxyCODONE/ACETAMINOPHEN 5-325 MG TABLET PO PRN (10:08)
[2021-01-21] MEDS: DOCUSATE SODIUM 100 MG CAPSULE PO SCH (10:08)
[2021-01-21] MEDS: metFORMIN 500 MG TABLET PO SCH (10:09)
[2021-01-21] MEDS: APIXABAN 5 MG TABLET PO SCH (10:10)
[2021-01-21] MEDS: FERROUS SULFATE 325 MG TABLET PO SCH (10:10)
[2021-01-21] MEDS: ASCORBIC ACID 500 MG TABLET PO SCH (10:10)
[2021-01-21] MEDS: PANTOPRAZOLE 40 MG TABLET PO SCH (10:10)
[2021-01-21] MEDS: allopurinoL 300 MG TABLET PO SCH (10:11)
[2021-01-21] MEDS: POLYETHYLENE GLYCOL POWDER 17 GM PACK PO SCH (10:12)
[2021-01-21] MEDS: AMIODARONE 200 MG TABLET PO SCH (10:12)
[2021-01-21 12:22] VITALS: BP 150/60
== END 2021-01-21 14:00 | disposition home health service (06) | DRG 235 ==
LOC: N.4E 09:31 → N.CVR 01-12 10:10 → N.ICU 01-13 13:55 → N.TELES 01-14 22:52

== ENCOUNTER 2021-03-06 10:30 | Inpatient (IN) ==
[2021-03-06 10:54] LABS: Basophils # 0.1 10*3/uL (0.0-0.2); Basophils % 0.8 % (0.0-0.8); Eosinophils # 0.5 10*3/uL (0.0-0.87); Eosinophils % 5.7 % (0.00-10.9); Hematocrit 35.4 VOL% (35.7-47.0); Hemoglobin 11.1 GM/DL (12.0-16.0); Immature Granulocytes % 0.5 %; Immature Granulocytes Absolute 0.04 #; Lymphocytes # 1.1 10*3/uL (1.4-4.0); Lymphocytes % 14.4 % (21.3-54.2); Mean Corpuscular HGB Conc 31.4 GM/DL (32-36); Mean Corpuscular Volume 96.7 FL (87-102); Mean Platelet Volume 9.7 FL (9.6-12.0); Monocytes % 8.8 % (1.7-12.7); Neutrophils % 69.8 % (38.7-73.9); Platelet Count 329 T/CUMM (130-400); Red Blood Count 3.66 MC/CUMM (3.8-5.5); Red Cell Distribution Width 15.5 % (9.3-17.3); White Blood Count 7.9 T/CUMM (4-12)
[2021-03-06 11:20] LABS: Alanine Aminotransferase 23 U/L (13-56); Albumin 3.5 G/DL (3.4-5.0); Alkaline Phosphatase 111 U/L (45-117); Aspartate Amino Transferase 22 U/L (0-37); Bilirubin,Total < 0.39 MG/DL (0.20-1.00); Blood Urea Nitrogen 23 MG/DL (7-18); Calcium 9.3 MG/DL (8.5-10.1); Carbon Dioxide 31 MMOL/L (21-32); Estimated Glom Filtration Rate 51 ML/MIN; Glucose 117 MG/DL (74-106); Osmolality,Calculated 277.8 MOS/KG (273-304); Potassium 3.8 MMOL/L (3.5-5.1); Sodium 137 MMOL/L (136-145); Total Protein 7.1 G/DL (6.4-8.2)
[2021-03-06] MEDS ORDERED: FUROSEMIDE 40 MG/4 ML VIAL IV STA (12:20)
[2021-03-06] MEDS ORDERED: LACTULOSE 20 GM/30 ML UDCUP PO PRN (12:50)
[2021-03-06] MEDS ORDERED: SIMETHICONE CHEW 125 MG TABLET PO PRN (12:50)
[2021-03-06] MEDS ORDERED: MAGNESIUM SULF RIDER 2 GM/50 ML PREMIX IV PRN (12:50)
[2021-03-06] MEDS ORDERED: ACETAMINOPHEN 325 MG TABLET PO PRN (12:50)
[2021-03-06] MEDS ORDERED: MAGNESIUM SULF RIDER 4 GM/100 ML PREMIX IV PRN (12:50)
[2021-03-06] MEDS ORDERED: ONDANSETRON 4 MG/2 ML VIAL IV PRN (12:50)
[2021-03-06] MEDS ORDERED: CALCIUM CARBONATE CHEW 500 MG TABLET PO PRN (12:50)
[2021-03-06] MEDS ORDERED: POTASSIUM CHLORIDE 20 MEQ TABLET PO PRN (12:50)
[2021-03-06] MEDS ORDERED: MORPHINE 2 MG/1 ML SYRINGE IV PRN (12:50)
[2021-03-06] MEDS ORDERED: BISACODYL 5 MG TABLET PO PRN (12:50)
[2021-03-06] MEDS ORDERED: ALUMINUM/MAGNES/SIMETH MAX STR 30 ML UDCUP PO PRN (12:50)
[2021-03-06] MEDS ORDERED: ENOXAPARIN 40 MG/0.4 ML SYRINGE SUBCUT SCH (13:00)
[2021-03-06] MEDS ORDERED: allopurinoL 300 MG TABLET PO PRN (13:14)
[2021-03-06] MEDS ORDERED: COLCHICINE 0.6 MG PO PRN (13:14)
[2021-03-06] MEDS ORDERED: DEXTROSE 50% 25 GM/50 ML VIAL IV PRN (13:23)
[2021-03-06] MEDS ORDERED: GLUCAGON 1 MG VIAL IM PRN (13:23)
[2021-03-06] MEDS: INSULIN LISPRO 100 UNIT/ML SUBCUT SCH ×2 (17:00→21:34)
[2021-03-06] MEDS ORDERED: INFLUENZA VIRUS VACCINE 0.5 ML SYRINGE IM ONE (17:50)
[2021-03-06] MEDS: FUROSEMIDE 40 MG/4 ML VIAL IV SCH ×2 (18:09→21:31)
[2021-03-06] MEDS: ASCORBIC ACID 500 MG TABLET PO SCH (20:44)
[2021-03-06] MEDS: TEMAZEPAM 15 MG CAPSULE PO SCH (20:44)
[2021-03-06] MEDS: GABAPENTIN 600 MG TABLET PO SCH (20:45)
[2021-03-06] MEDS: AMIODARONE 200 MG TABLET PO SCH (20:45)
[2021-03-06] MEDS: ENOXAPARIN 80 MG/0.8 ML SYRINGE SUBCUT SCH (20:46)
[2021-03-06] MEDS: ZALEPLON 5 MG CAPSULE PO PRN (20:47)
[2021-03-07 04:25] LABS: Basophils # 0.1 10*3/uL (0.0-0.2); Basophils % 1.1 % (0.0-0.8); Eosinophils # 0.7 10*3/uL (0.0-0.87); Eosinophils % 9.6 % (0.00-10.9); Hematocrit 34.4 VOL% (35.7-47.0); Hemoglobin 10.7 GM/DL (12.0-16.0); Immature Granulocytes % 0.3 %; Immature Granulocytes Absolute 0.02 #; Lymphocytes # 1.6 10*3/uL (1.4-4.0); Lymphocytes % 22.8 % (21.3-54.2); Mean Corpuscular HGB Conc 31.1 GM/DL (32-36); Mean Corpuscular Volume 97.7 FL (87-102); Mean Platelet Volume 10.3 FL (9.6-12.0); Monocytes % 9.6 % (1.7-12.7); Neutrophils % 56.6 % (38.7-73.9); Platelet Count 334 T/CUMM (130-400); Red Blood Count 3.52 MC/CUMM (3.8-5.5); Red Cell Distribution Width 15.5 % (9.3-17.3); White Blood Count 7.2 T/CUMM (4-12)
[2021-03-07 05:05] LABS: Calcium 8.7 MG/DL (8.5-10.1); Osmolality,Calculated 284.3 MOS/KG (273-304); Potassium 3.7 MMOL/L (3.5-5.1); Risk Ratio 4.11; Thyroid Stimulating Hormone 6.93 uIU/ml (0.358-3.74)
[2021-03-07] MEDS: INSULIN LISPRO 100 UNIT/ML SUBCUT SCH ×4 (08:38→22:18)
[2021-03-07] MEDS: ASCORBIC ACID 500 MG TABLET PO SCH ×2 (10:08→21:03)
[2021-03-07] MEDS: DILTIAZEM CD 120 MG CAPSULE PO SCH (10:08)
[2021-03-07] MEDS: ASPIRIN EC 81 MG TABLET PO SCH (10:09)
[2021-03-07] MEDS: PANTOPRAZOLE 40 MG TABLET PO SCH (10:09)
[2021-03-07] MEDS: AMIODARONE 200 MG TABLET PO SCH ×2 (10:09→21:02)
[2021-03-07] MEDS: MELOXICAM 7.5 MG TABLET PO SCH (10:09)
[2021-03-07] MEDS: FUROSEMIDE 40 MG/4 ML VIAL IV SCH ×2 (10:21→21:09)
[2021-03-07] MEDS: ENOXAPARIN 80 MG/0.8 ML SYRINGE SUBCUT SCH ×2 (10:22→21:03)
[2021-03-07 16:34] LABS: Bilirubin,Urine Negative (Negative); Blood, Urine Negative (Negative); Calcium Oxalate Crystals,Urine Occasional /HPF (Few); Glucose,Urine (UA) Negative (Negative); Hyaline Casts,Urine 7 /LPF (0-3); Ketones,Urine Negative (Negative); Mucus,Urine Occasional /LPF (Occasional); Nitrite,Urine Negative (Negative); Protein,Urine Negative; RBC,Urine 5 /HPF (0-4); Squamous Epithelial Cell,Urine Occasional /HPF (0-10); Urine Appearance Slightly Hazy (Clear); Urine Color Yellow (Yellow); Urine Specific Gravity 1.015 (1.001-1.035); Urine Urobilinogen < 2.0 EU/DL (0.2-1.0)
[2021-03-07] MEDS: GABAPENTIN 600 MG TABLET PO SCH (21:02)
[2021-03-07] MEDS: TEMAZEPAM 15 MG CAPSULE PO SCH (21:02)
[2021-03-07] MEDS: ZALEPLON 5 MG CAPSULE PO PRN (21:02)
[2021-03-08 05:47] LABS: Basophils % 0.6 % (0.0-0.8); Eosinophils # 0.5 10*3/uL (0.0-0.87); Eosinophils % 7.7 % (0.00-10.9); Hematocrit 32.9 VOL% (35.7-47.0); Hemoglobin 10.2 GM/DL (12.0-16.0); Immature Granulocytes % 0.3 %; Immature Granulocytes Absolute 0.02 #; Lymphocytes # 1.2 10*3/uL (1.4-4.0); Lymphocytes % 18.6 % (21.3-54.2); Mean Corpuscular Volume 97.6 FL (87-102); Mean Platelet Volume 9.8 FL (9.6-12.0); Neutrophils % 60.8 % (38.7-73.9); Platelet Count 281 T/CUMM (130-400); Red Blood Count 3.37 MC/CUMM (3.8-5.5); Red Cell Distribution Width 15.7 % (9.3-17.3); White Blood Count 6.3 T/CUMM (4-12)
[2021-03-08 06:13] LABS: Calcium 8.7 MG/DL (8.5-10.1); Osmolality,Calculated 277.8 MOS/KG (273-304); Potassium 3.7 MMOL/L (3.5-5.1)
[2021-03-08] MEDS: INSULIN LISPRO 100 UNIT/ML SUBCUT SCH ×2 (08:06→13:01)
[2021-03-08] MEDS: PANTOPRAZOLE 40 MG TABLET PO SCH (09:03)
[2021-03-08] MEDS: ASCORBIC ACID 500 MG TABLET PO SCH (09:03)
[2021-03-08] MEDS: AMIODARONE 200 MG TABLET PO SCH (09:04)
[2021-03-08] MEDS: ASPIRIN EC 81 MG TABLET PO SCH (09:04)
[2021-03-08] MEDS: DILTIAZEM CD 120 MG CAPSULE PO SCH (09:04)
[2021-03-08] MEDS: MELOXICAM 7.5 MG TABLET PO SCH (09:04)
[2021-03-08] MEDS: ENOXAPARIN 80 MG/0.8 ML SYRINGE SUBCUT SCH (09:08)
[2021-03-08] MEDS: FUROSEMIDE 40 MG/4 ML VIAL IV SCH (09:12)
[2021-03-08 13:43] VITALS: BP 109/54
== END 2021-03-08 16:57 | disposition home or self-care (01) | DRG 291 ==
LOC: N.ED 10:30 → N.EDINP 12:50 → N.TELEN 17:22
PROVIDERS: ADMIT Internal Medicine Cardiovascular Disease; ATTEND Internal Medicine Cardiovascular Disease

== ENCOUNTER 2021-04-20 17:55 | Inpatient (IN) ==
[2021-04-20 18:30] LABS: Basophils % 0.1 % (0.0-0.8); Eosinophils # 0.1 10*3/uL (0.0-0.87); Hematocrit 38.2 VOL% (35.7-47.0); Hemoglobin 11.7 GM/DL (12.0-16.0); Immature Granulocytes % 0.4 %; Immature Granulocytes Absolute 0.04 #; Lymphocytes # 1.2 10*3/uL (1.4-4.0); Lymphocytes % 11.3 % (21.3-54.2); Mean Corpuscular HGB Conc 30.6 GM/DL (32-36); Mean Corpuscular Volume 97.2 FL (87-102); Mean Platelet Volume 9.8 FL (9.6-12.0); Monocytes % 11.2 % (1.7-12.7); Platelet Count 256 T/CUMM (130-400); Red Blood Count 3.93 MC/CUMM (3.8-5.5); Red Cell Distribution Width 16.2 % (9.3-17.3); White Blood Count 10.3 T/CUMM (4-12)
[2021-04-20 18:54] LABS: Albumin 3.5 G/DL (3.4-5.0); Bilirubin,Total 0.7 MG/DL (0.20-1.00); Calcium 8.7 MG/DL (8.5-10.1); Potassium 4.4 MMOL/L (3.5-5.1); Total Protein 6.2 G/DL (6.4-8.2)
[2021-04-20] MEDS ORDERED: ASPIRIN CHEW 81 MG TABLET PO STA (19:02)
[2021-04-20] MEDS ORDERED: ONDANSETRON 4 MG/2 ML VIAL IV ONE (20:02)
[2021-04-20] MEDS ORDERED: FUROSEMIDE 100 MG/10 ML VIAL IV STA (20:12)
[2021-04-20 21:15] LABS: INR 1.1; PT Patient Result 12.4 SECS (10.5-12.0); Partial Thromboplastin Time 23.4 SECS (23.8-32.1)
[2021-04-20] MEDS ORDERED: DEXTROSE 50% 25 GM/50 ML VIAL IV PRN (21:52)
[2021-04-20] MEDS ORDERED: GLUCAGON 1 MG VIAL IM PRN (21:52)
[2021-04-20] MEDS ORDERED: ONDANSETRON 4 MG/2 ML VIAL IV PRN (21:52)
[2021-04-20] MEDS ORDERED: ACETAMINOPHEN 325 MG TABLET PO PRN (21:52)
[2021-04-20] MEDS ORDERED: PANTOPRAZOLE 40 MG TABLET PO PRN (22:04)
[2021-04-20] MEDS: HEPARIN 5,000 UNIT/1 ML VIAL SUBCUT SCH (22:44)
[2021-04-21 02:05] LABS: Basophils % 0.1 % (0.0-0.8); Eosinophils # 0.1 10*3/uL (0.0-0.87); Eosinophils % 1.2 % (0.00-10.9); Hematocrit 33.9 VOL% (35.7-47.0); Hemoglobin 10.8 GM/DL (12.0-16.0); Immature Granulocytes % 0.5 %; Immature Granulocytes Absolute 0.04 #; Lymphocytes % 12.9 % (21.3-54.2); Mean Corpuscular HGB Conc 31.9 GM/DL (32-36); Mean Corpuscular Volume 95.8 FL (87-102); Mean Platelet Volume 11.2 FL (9.6-12.0); Monocytes % 10.7 % (1.7-12.7); Neutrophils % 74.6 % (38.7-73.9); Platelet Count 183 T/CUMM (130-400); Red Blood Count 3.54 MC/CUMM (3.8-5.5); Red Cell Distribution Width 16.3 % (9.3-17.3); White Blood Count 7.4 T/CUMM (4-12)
[2021-04-21 02:28] LABS: Calcium 8.6 MG/DL (8.5-10.1); Osmolality,Calculated 275.1 MOS/KG (273-304); Potassium 3.8 MMOL/L (3.5-5.1); Risk Ratio 3.69; Thyroid Stimulating Hormone 4.15 uIU/ml (0.358-3.74); VLDL Cholesterol 13.8 MG/DL
[2021-04-21] MEDS ORDERED: MAGNESIUM SULF RIDER 2 GM/50 ML PREMIX IV ONE (07:22)
[2021-04-21 07:46] LABS: Free T4 (Free Thyroxine) 1.39 NG/DL (0.76-1.46)
[2021-04-21] MEDS: metOLazone 2.5 MG TABLET PO SCH (08:54)
[2021-04-21] MEDS: FUROSEMIDE 40 MG/4 ML VIAL IV SCH ×2 (08:54→16:41)
[2021-04-21] MEDS: AMIODARONE 200 MG TABLET PO SCH ×2 (08:54→21:27)
[2021-04-21] MEDS: ASPIRIN EC 81 MG TABLET PO SCH (08:54)
[2021-04-21] MEDS: HEPARIN 5,000 UNIT/1 ML VIAL SUBCUT SCH ×2 (09:31→21:32)
[2021-04-21] MEDS: oxyCODONE/ACETAMINOPHEN 5-325 MG TABLET PO PRN ×2 (11:00→21:31)
[2021-04-21] MEDS: SPIRONOLACTONE 25 MG TABLET PO SCH (11:47)
[2021-04-21] MEDS: DILTIAZEM CD 120 MG CAPSULE PO SCH (11:51)
[2021-04-21] MEDS: PIPERACILLIN/TAZOBACTAM 3,375 MG in SODIUM CHLORIDE 0.9% 100 ML IV SCH (18:02)
[2021-04-21] MEDS: GABAPENTIN 600 MG TABLET PO SCH (21:27)
[2021-04-21] MEDS: ASCORBIC ACID 500 MG TABLET PO SCH (21:27)
[2021-04-22] MEDS: PIPERACILLIN/TAZOBACTAM 3,375 MG in SODIUM CHLORIDE 0.9% 100 ML IV SCH ×3 (02:51→18:21)
[2021-04-22] MEDS: oxyCODONE/ACETAMINOPHEN 5-325 MG TABLET PO PRN ×2 (07:18→18:21)
[2021-04-22] MEDS: LEVOTHYROXINE 25 MCG TABLET PO SCH (07:19)
[2021-04-22 07:29] LABS: Basophils % 0.1 % (0.0-0.8); Eosinophils # 0.1 10*3/uL (0.0-0.87); Eosinophils % 1.3 % (0.00-10.9); Hematocrit 34.8 VOL% (35.7-47.0); Hemoglobin 10.8 GM/DL (12.0-16.0); Immature Granulocytes % 0.5 %; Immature Granulocytes Absolute 0.04 #; Lymphocytes # 1.2 10*3/uL (1.4-4.0); Lymphocytes % 15.4 % (21.3-54.2); Mean Corpuscular Volume 95.3 FL (87-102); Mean Platelet Volume 10.3 FL (9.6-12.0); Monocytes % 9.9 % (1.7-12.7); Neutrophils % 72.8 % (38.7-73.9); Platelet Count 224 T/CUMM (130-400); Red Blood Count 3.65 MC/CUMM (3.8-5.5); Red Cell Distribution Width 16.5 % (9.3-17.3); White Blood Count 7.6 T/CUMM (4-12)
[2021-04-22] MEDS ORDERED: MAGNESIUM SULF RIDER 2 GM/50 ML PREMIX IV ONE (07:33)
[2021-04-22] MEDS ORDERED: POTASSIUM CHLORIDE 20 MEQ TABLET PO ONE (07:33)
[2021-04-22 07:53] LABS: Calcium 8.8 MG/DL (8.5-10.1); Potassium 3.7 MMOL/L (3.5-5.1)
[2021-04-22] MEDS: AMIODARONE 200 MG TABLET PO SCH ×2 (09:47→20:46)
[2021-04-22] MEDS: ASCORBIC ACID 500 MG TABLET PO SCH ×2 (09:47→20:46)
[2021-04-22] MEDS: metOLazone 2.5 MG TABLET PO SCH (09:48)
[2021-04-22] MEDS: SPIRONOLACTONE 25 MG TABLET PO SCH (09:48)
[2021-04-22] MEDS: DILTIAZEM CD 120 MG CAPSULE PO SCH (09:48)
[2021-04-22] MEDS: ASPIRIN EC 81 MG TABLET PO SCH (09:48)
[2021-04-22] MEDS: FUROSEMIDE 40 MG/4 ML VIAL IV SCH ×2 (09:50→17:19)
[2021-04-22] MEDS: HEPARIN 5,000 UNIT/1 ML VIAL SUBCUT SCH (10:10)
[2021-04-22] MEDS: APIXABAN 5 MG TABLET PO SCH ×2 (14:17→20:47)
[2021-04-22] MEDS: GABAPENTIN 600 MG TABLET PO SCH (20:46)
[2021-04-22] MEDS ORDERED: TEMAZEPAM 15 MG CAPSULE PO ONE (21:45)
[2021-04-23] MEDS: PIPERACILLIN/TAZOBACTAM 3,375 MG in SODIUM CHLORIDE 0.9% 100 ML IV SCH ×3 (03:36→18:15)
[2021-04-23 04:40] LABS: Basophils % 0.2 % (0.0-0.8); Eosinophils # 0.1 10*3/uL (0.0-0.87); Eosinophils % 1.5 % (0.00-10.9); Hematocrit 34.3 VOL% (35.7-47.0); Hemoglobin 10.6 GM/DL (12.0-16.0); Immature Granulocytes % 0.4 %; Immature Granulocytes Absolute 0.03 #; Lymphocytes # 1.2 10*3/uL (1.4-4.0); Mean Corpuscular HGB Conc 30.9 GM/DL (32-36); Mean Corpuscular Volume 96.1 FL (87-102); Mean Platelet Volume 10.3 FL (9.6-12.0); Monocytes % 14.8 % (1.7-12.7); Neutrophils % 69.1 % (38.7-73.9); Platelet Count 235 T/CUMM (130-400); Red Blood Count 3.57 MC/CUMM (3.8-5.5); Red Cell Distribution Width 16.4 % (9.3-17.3); White Blood Count 8.4 T/CUMM (4-12)
[2021-04-23 05:05] LABS: Calcium 8.8 MG/DL (8.5-10.1); Osmolality,Calculated 274.1 MOS/KG (273-304)
[2021-04-23] MEDS: LEVOTHYROXINE 25 MCG TABLET PO SCH (06:09)
[2021-04-23 06:45] LABS: Bilirubin,Urine Negative (Negative); Blood, Urine Negative (Negative); Glucose,Urine (UA) Negative (Negative); Ketones,Urine Negative (Negative); Nitrite,Urine Negative (Negative); Protein,Urine Negative; RBC,Urine 1 /HPF (0-4); Squamous Epithelial Cell,Urine Occasional /HPF (0-10); Urine Appearance CLEAR (Clear); Urine Color Straw (Yellow); Urine Specific Gravity 1.008 (1.001-1.035); Urine Urobilinogen < 2.0 EU/DL (0.2-1.0)
[2021-04-23] MEDS: oxyCODONE/ACETAMINOPHEN 5-325 MG TABLET PO PRN ×2 (07:47→18:14)
[2021-04-23] MEDS: metOLazone 2.5 MG TABLET PO SCH (07:47)
[2021-04-23] MEDS: DILTIAZEM CD 120 MG CAPSULE PO SCH (09:37)
[2021-04-23] MEDS: APIXABAN 5 MG TABLET PO SCH ×2 (09:37→21:26)
[2021-04-23] MEDS: SPIRONOLACTONE 25 MG TABLET PO SCH (09:37)
[2021-04-23] MEDS: ASPIRIN EC 81 MG TABLET PO SCH (09:37)
[2021-04-23] MEDS: AMIODARONE 200 MG TABLET PO SCH (09:41)
[2021-04-23] MEDS: ASCORBIC ACID 500 MG TABLET PO SCH ×2 (09:41→21:26)
[2021-04-23] MEDS: FUROSEMIDE 40 MG/4 ML VIAL IV SCH ×2 (09:42→16:38)
[2021-04-23] MEDS ORDERED: cefTRIAXone 1,000 MG in SODIUM CHLORIDE 0.9% 100 ML IV SCH (11:00)
[2021-04-23] MEDS: PHENAZOPYRIDINE 95 MG TABLET PO SCH (16:37)
[2021-04-23] MEDS ORDERED: TEMAZEPAM 15 MG CAPSULE PO SCH (21:00)
[2021-04-23] MEDS: GABAPENTIN 600 MG TABLET PO SCH (21:26)
[2021-04-24] MEDS: PIPERACILLIN/TAZOBACTAM 3,375 MG in SODIUM CHLORIDE 0.9% 100 ML IV SCH ×2 (02:24→10:01)
[2021-04-24 06:20] LABS: Basophils % 0.2 % (0.0-0.8); Eosinophils # 0.2 10*3/uL (0.0-0.87); Eosinophils % 1.9 % (0.00-10.9); Hematocrit 36.3 VOL% (35.7-47.0); Hemoglobin 11.4 GM/DL (12.0-16.0); Immature Granulocytes % 0.4 %; Immature Granulocytes Absolute 0.03 #; Lymphocytes # 1.1 10*3/uL (1.4-4.0); Lymphocytes % 13.7 % (21.3-54.2); Mean Corpuscular HGB Conc 31.4 GM/DL (32-36); Mean Corpuscular Volume 95.8 FL (87-102); Mean Platelet Volume 10.1 FL (9.6-12.0); Monocytes % 9.3 % (1.7-12.7); Neutrophils % 74.5 % (38.7-73.9); Platelet Count 264 T/CUMM (130-400); Red Blood Count 3.79 MC/CUMM (3.8-5.5); Red Cell Distribution Width 16.4 % (9.3-17.3); White Blood Count 8.3 T/CUMM (4-12)
[2021-04-24] MEDS: LEVOTHYROXINE 25 MCG TABLET PO SCH (06:20)
[2021-04-24 06:51] LABS: Calcium 9.1 MG/DL (8.5-10.1); Osmolality,Calculated 277.8 MOS/KG (273-304); Potassium 3.7 MMOL/L (3.5-5.1)
[2021-04-24] MEDS: metOLazone 2.5 MG TABLET PO SCH (06:55)
[2021-04-24] MEDS: SPIRONOLACTONE 25 MG TABLET PO SCH (08:51)
[2021-04-24] MEDS: AMIODARONE 200 MG TABLET PO SCH (08:52)
[2021-04-24] MEDS: ASCORBIC ACID 500 MG TABLET PO SCH (08:52)
[2021-04-24] MEDS: PHENAZOPYRIDINE 95 MG TABLET PO SCH (08:53)
[2021-04-24] MEDS: APIXABAN 5 MG TABLET PO SCH (08:53)
[2021-04-24] MEDS: DILTIAZEM CD 120 MG CAPSULE PO SCH (08:53)
[2021-04-24] MEDS: FUROSEMIDE 40 MG/4 ML VIAL IV SCH (08:54)
[2021-04-24] MEDS: ASPIRIN EC 81 MG TABLET PO SCH (08:54)
[2021-04-24] MEDS: oxyCODONE/ACETAMINOPHEN 5-325 MG TABLET PO PRN (10:16)
[2021-04-24 12:40] VITALS: BP 111/39
[2021-04-24] MEDS ORDERED: FUROSEMIDE 40 MG TABLET PO SCH (16:00)
== END 2021-04-24 14:58 | disposition home health service (06) | DRG 291 ==
LOC: N.EDINP 17:55 → N.ED 17:55 → N.TELES 22:51 → SUATTDRO 04-22 12:49
PROVIDERS: ADMIT Internal Medicine; ATTEND Internal Medicine

== ENCOUNTER 2021-06-19 11:06 | Inpatient (IN) ==
[2021-06-19 12:47] LABS: Bilirubin,Urine Negative (Negative); Blood, Urine Negative (Negative); Glucose,Urine (UA) Negative (Negative); Ketones,Urine Negative (Negative); Mucus,Urine Occasional /LPF (Occasional); Nitrite,Urine Negative (Negative); Protein,Urine 30 MG/DL; RBC,Urine 1 /HPF (0-4); Urine Appearance CLEAR (Clear); Urine Color Yellow (Yellow); Urine Specific Gravity 1.019 (1.001-1.035); Urine Urobilinogen < 2.0 EU/DL (<2.0)
[2021-06-19 12:53] LABS: Basophils % 0.2 % (0.0-0.8); Eosinophils % 0.4 % (0.00-10.9); Hematocrit 33.4 VOL% (35.7-47.0); Hemoglobin 10.5 GM/DL (12.0-16.0); Immature Granulocytes % 0.4 %; Immature Granulocytes Absolute 0.02 #; Lymphocytes # 0.4 10*3/uL (1.4-4.0); Lymphocytes % 8.8 % (21.3-54.2); Mean Corpuscular HGB Conc 31.4 GM/DL (32-36); Mean Corpuscular Volume 95.2 FL (87-102); Mean Platelet Volume 10.4 FL (9.6-12.0); Monocytes % 7.3 % (1.7-12.7); Neutrophils % 82.9 % (38.7-73.9); Platelet Count 254 T/CUMM (130-400); Red Blood Count 3.51 MC/CUMM (3.8-5.5); Red Cell Distribution Width 17.6 % (9.3-17.3); White Blood Count 4.7 T/CUMM (4-12)
[2021-06-19 13:03] LABS: Albumin 2.8 G/DL (3.4-5.0); Bilirubin,Total 0.4 MG/DL (0.20-1.00); Calcium 8.5 MG/DL (8.5-10.1); Osmolality,Calculated 273.1 MOS/KG (273-304); Potassium 3.9 MMOL/L (3.5-5.1); Total Protein 6.3 G/DL (6.4-8.2)
[2021-06-19] MEDS ORDERED: cefTRIAXone 1,000 MG in SODIUM CHLORIDE 0.9% 100 ML IV STA (13:14)
[2021-06-19] MEDS ORDERED: AZITHROMYCIN 250 MG TABLET PO STA (13:14)
[2021-06-19 13:36] LABS: Band Neutrophils 8 % (0-10); Lymphocytes 9 % (20-55); Segmented Neutrophils 77 % (50-85); Total Cells Counted 100
[2021-06-19 13:40] LABS: Platelet Estimate Adequate
[2021-06-19 13:41] LABS: Hypochromia Slight
[2021-06-19] MEDS ORDERED: FUROSEMIDE 100 MG/10 ML VIAL IV STA (13:48)
[2021-06-19] MEDS ORDERED: DEXTROSE 50% 25 GM/50 ML SYRINGE IV PRN (14:14)
[2021-06-19] MEDS ORDERED: GLUCAGON 1 MG VIAL IM PRN ×2 (14:14)
[2021-06-19] MEDS ORDERED: DEXTROSE 50% 25 GM/50 ML VIAL IV PRN (14:14)
[2021-06-19] MEDS ORDERED: ENOXAPARIN 40 MG/0.4 ML SYRINGE SUBCUT SCH (14:30)
[2021-06-19] MEDS ORDERED: NITROGLYCERIN SL 0.4 MG TABLET SL PRN (15:10)
[2021-06-19] MEDS: ASCORBIC ACID 500 MG TABLET PO SCH (15:30)
[2021-06-19 16:25] LABS: ABG HCO3 29.9 MMOL/L (20-26); ABG Oxygen Saturation 99.3 % (95-100); ABG PCO2 50.9 MM HG (35-48); ABG PH 7.406 (7.35-7.45); ABG TCO2 28.5 MMOL/L (23-27)
[2021-06-19] MEDS: INSULIN REGULAR 100 UNIT/ML SUBCUT SCH ×2 (18:41→21:56)
[2021-06-19] MEDS: ACETAMINOPHEN 325 MG TABLET PO PRN (20:45)
[2021-06-19] MEDS: APIXABAN 5 MG TABLET PO SCH (20:45)
[2021-06-19] MEDS ORDERED: FUROSEMIDE 40 MG/4 ML VIAL IV ONE (21:00)
[2021-06-19] MEDS ORDERED: AMIODARONE 200 MG TABLET PO SCH (21:00)
[2021-06-19] MEDS ORDERED: oxyCODONE/ACETAMINOPHEN 5-325 MG TABLET PO PRN (22:29)
[2021-06-20 05:26] LABS: Basophils % 0.2 % (0.0-0.8); Eosinophils % 0.5 % (0.00-10.9); Hemoglobin 10.7 GM/DL (12.0-16.0); Immature Granulocytes % 0.5 %; Immature Granulocytes Absolute 0.02 #; Lymphocytes # 0.7 10*3/uL (1.4-4.0); Lymphocytes % 14.7 % (21.3-54.2); Mean Corpuscular HGB Conc 31.5 GM/DL (32-36); Mean Corpuscular Volume 95.2 FL (87-102); Monocytes % 10.2 % (1.7-12.7); Neutrophils % 73.9 % (38.7-73.9); Platelet Count 274 T/CUMM (130-400); Red Blood Count 3.57 MC/CUMM (3.8-5.5); Red Cell Distribution Width 17.4 % (9.3-17.3); White Blood Count 4.4 T/CUMM (4-12)
[2021-06-20 05:49] LABS: Albumin 2.5 G/DL (3.4-5.0); Bilirubin,Total 0.5 MG/DL (0.20-1.00); Calcium 8.1 MG/DL (8.5-10.1); Osmolality,Calculated 279.5 MOS/KG (273-304); Potassium 3.6 MMOL/L (3.5-5.1); Total Protein 5.9 G/DL (6.4-8.2)
[2021-06-20 05:50] LABS: Calcium 8.2 MG/DL (8.5-10.1); Osmolality,Calculated 279.5 MOS/KG (273-304); Potassium 3.6 MMOL/L (3.5-5.1)
[2021-06-20] MEDS: INSULIN REGULAR 100 UNIT/ML SUBCUT SCH ×4 (08:09→21:01)
[2021-06-20] MEDS: FUROSEMIDE 40 MG/4 ML VIAL IV SCH ×2 (08:35→16:55)
[2021-06-20] MEDS ORDERED: ASPIRIN EC 81 MG TABLET PO SCH (09:00)
[2021-06-20] MEDS: CLOPIDOGREL 75 MG TABLET PO SCH (09:35)
[2021-06-20] MEDS: SPIRONOLACTONE 25 MG TABLET PO SCH (09:35)
[2021-06-20] MEDS: APIXABAN 5 MG TABLET PO SCH ×2 (09:35→21:01)
[2021-06-20] MEDS: lisinopriL 10 MG TABLET PO SCH (09:36)
[2021-06-20] MEDS: AMIODARONE 200 MG TABLET PO SCH (09:36)
[2021-06-20] MEDS: ASCORBIC ACID 500 MG TABLET PO SCH ×2 (09:36→21:02)
[2021-06-20] MEDS: DILTIAZEM CD 120 MG CAPSULE PO SCH (09:37)
[2021-06-20] MEDS: ONDANSETRON 4 MG/2 ML VIAL IV PRN ×3 (10:13→19:58)
[2021-06-20] MEDS: oxyCODONE/ACETAMINOPHEN 5-325 MG TABLET PO SCH ×2 (10:13→21:02)
[2021-06-20] MEDS ORDERED: MAGNESIUM SULF RIDER 2 GM/50 ML PREMIX IV ONE (13:00)
[2021-06-21 06:01] LABS: Basophils % 0.2 % (0.0-0.8); Hematocrit 38.7 VOL% (35.7-47.0); Hemoglobin 12.2 GM/DL (12.0-16.0); Immature Granulocytes % 0.6 %; Immature Granulocytes Absolute 0.03 #; Lymphocytes # 0.5 10*3/uL (1.4-4.0); Lymphocytes % 9.4 % (21.3-54.2); Mean Corpuscular HGB Conc 31.5 GM/DL (32-36); Mean Corpuscular Volume 94.6 FL (87-102); Mean Platelet Volume 9.6 FL (9.6-12.0); Monocytes % 7.5 % (1.7-12.7); Neutrophils % 82.3 % (38.7-73.9); Platelet Count 333 T/CUMM (130-400); Red Blood Count 4.09 MC/CUMM (3.8-5.5); Red Cell Distribution Width 17.2 % (9.3-17.3); White Blood Count 5.3 T/CUMM (4-12)
[2021-06-21] MEDS: ONDANSETRON 4 MG/2 ML VIAL IV PRN ×3 (06:09→19:35)
[2021-06-21 06:21] LABS: Calcium 8.6 MG/DL (8.5-10.1); Osmolality,Calculated 265.5 MOS/KG (273-304); Potassium 3.6 MMOL/L (3.5-5.1)
[2021-06-21] MEDS: oxyCODONE/ACETAMINOPHEN 5-325 MG TABLET PO PRN ×2 (06:42→21:17)
[2021-06-21] MEDS ORDERED: FUROSEMIDE 40 MG/4 ML VIAL IV SCH (09:00)
[2021-06-21] MEDS: INSULIN REGULAR 100 UNIT/ML SUBCUT SCH ×4 (09:43→21:17)
[2021-06-21] MEDS: APIXABAN 5 MG TABLET PO SCH ×2 (09:44→21:17)
[2021-06-21] MEDS: CLOPIDOGREL 75 MG TABLET PO SCH (09:44)
[2021-06-21] MEDS: AMIODARONE 200 MG TABLET PO SCH (09:44)
[2021-06-21] MEDS: ASCORBIC ACID 500 MG TABLET PO SCH ×2 (09:45→21:17)
[2021-06-21] MEDS: SPIRONOLACTONE 25 MG TABLET PO SCH (09:45)
[2021-06-21] MEDS: DILTIAZEM CD 120 MG CAPSULE PO SCH (09:45)
[2021-06-21] MEDS: lisinopriL 10 MG TABLET PO SCH (09:45)
[2021-06-21] MEDS: FUROSEMIDE 40 MG/4 ML VIAL IV SCH (10:37)
[2021-06-21] MEDS: ACETAMINOPHEN 325 MG TABLET PO PRN (16:09)
[2021-06-21] MEDS: GABAPENTIN 600 MG TABLET PO SCH (21:17)
[2021-06-22 04:43] LABS: Basophils % 0.3 % (0.0-0.8); Eosinophils # 0.1 10*3/uL (0.0-0.87); Hematocrit 40.5 VOL% (35.7-47.0); Hemoglobin 12.8 GM/DL (12.0-16.0); Immature Granulocytes % 0.3 %; Immature Granulocytes Absolute 0.02 #; Lymphocytes # 0.6 10*3/uL (1.4-4.0); Lymphocytes % 10.2 % (21.3-54.2); Mean Corpuscular HGB Conc 31.6 GM/DL (32-36); Mean Corpuscular Volume 94.6 FL (87-102); Mean Platelet Volume 9.4 FL (9.6-12.0); Monocytes % 6.4 % (1.7-12.7); Neutrophils % 81.8 % (38.7-73.9); Platelet Count 386 T/CUMM (130-400); Red Blood Count 4.28 MC/CUMM (3.8-5.5); Red Cell Distribution Width 17.4 % (9.3-17.3); White Blood Count 5.8 T/CUMM (4-12)
[2021-06-22 05:04] LABS: Calcium 8.9 MG/DL (8.5-10.1); Osmolality,Calculated 270.2 MOS/KG (273-304); Potassium 3.7 MMOL/L (3.5-5.1)
[2021-06-22] MEDS: ONDANSETRON 4 MG/2 ML VIAL IV PRN ×4 (05:19→21:31)
[2021-06-22] MEDS: INSULIN REGULAR 100 UNIT/ML SUBCUT SCH ×4 (08:10→21:32)
[2021-06-22] MEDS: ASCORBIC ACID 500 MG TABLET PO SCH ×3 (09:23→23:18)
[2021-06-22] MEDS: CLOPIDOGREL 75 MG TABLET PO SCH (09:23)
[2021-06-22] MEDS: APIXABAN 5 MG TABLET PO SCH ×2 (09:23→21:30)
[2021-06-22] MEDS: SPIRONOLACTONE 25 MG TABLET PO SCH (09:24)
[2021-06-22] MEDS: DILTIAZEM CD 120 MG CAPSULE PO SCH (09:24)
[2021-06-22] MEDS: AMIODARONE 200 MG TABLET PO SCH (09:24)
[2021-06-22] MEDS: lisinopriL 10 MG TABLET PO SCH (09:25)
[2021-06-22] MEDS: oxyCODONE/ACETAMINOPHEN 5-325 MG TABLET PO PRN ×2 (09:32→20:06)
[2021-06-22] MEDS ORDERED: FUROSEMIDE 40 MG/4 ML VIAL IV ONE (10:00)
[2021-06-22] MEDS: ACETAMINOPHEN 325 MG TABLET PO PRN (12:22)
[2021-06-22] MEDS: NYSTATIN 500,000 UNIT/5 ML UDCUP SWISH/SWAL SCH ×3 (12:22→21:31)
[2021-06-22] MEDS: FUROSEMIDE 40 MG TABLET PO SCH (16:36)
[2021-06-22] MEDS: GABAPENTIN 600 MG TABLET PO SCH (21:31)
[2021-06-23 06:52] LABS: Basophils % 0.3 % (0.0-0.8); Eosinophils # 0.1 10*3/uL (0.0-0.87); Eosinophils % 1.7 % (0.00-10.9); Hematocrit 41.7 VOL% (35.7-47.0); Hemoglobin 12.9 GM/DL (12.0-16.0); Immature Granulocytes % 0.8 %; Immature Granulocytes Absolute 0.06 #; Lymphocytes # 1.1 10*3/uL (1.4-4.0); Lymphocytes % 15.3 % (21.3-54.2); Mean Corpuscular HGB Conc 30.9 GM/DL (32-36); Mean Platelet Volume 9.9 FL (9.6-12.0); Monocytes % 9.7 % (1.7-12.7); NRBC # 0.02 10*3/uL; Neutrophils % 72.2 % (38.7-73.9); Platelet Count 393 T/CUMM (130-400); Red Blood Count 4.39 MC/CUMM (3.8-5.5); Red Cell Distribution Width 17.3 % (9.3-17.3); White Blood Count 7.2 T/CUMM (4-12)
[2021-06-23 07:12] LABS: Calcium 8.9 MG/DL (8.5-10.1); Osmolality,Calculated 260.9 MOS/KG (273-304); Potassium 3.7 MMOL/L (3.5-5.1)
[2021-06-23] MEDS ORDERED: SODIUM CHLORIDE 0.9% 500 ML IV ONE (07:33)
[2021-06-23] MEDS: INSULIN REGULAR 100 UNIT/ML SUBCUT SCH ×3 (07:41→16:13)
[2021-06-23] MEDS: FUROSEMIDE 40 MG TABLET PO SCH (07:42)
[2021-06-23] MEDS: LEVOTHYROXINE 25 MCG TABLET PO SCH (08:10)
[2021-06-23] MEDS: ONDANSETRON 4 MG/2 ML VIAL IV PRN ×3 (10:01→21:02)
[2021-06-23] MEDS: APIXABAN 5 MG TABLET PO SCH ×2 (10:02→21:02)
[2021-06-23] MEDS: CLOPIDOGREL 75 MG TABLET PO SCH (10:02)
[2021-06-23] MEDS: NYSTATIN 500,000 UNIT/5 ML UDCUP SWISH/SWAL SCH ×4 (10:02→21:02)
[2021-06-23] MEDS: ASCORBIC ACID 500 MG TABLET PO SCH ×2 (10:02→21:01)
[2021-06-23] MEDS: AMIODARONE 200 MG TABLET PO SCH (10:03)
[2021-06-23] MEDS: oxyCODONE/ACETAMINOPHEN 5-325 MG TABLET PO PRN ×2 (12:35→21:01)
[2021-06-23] MEDS: SODIUM CHLORIDE 1 GM TABLET PO SCH ×2 (16:53→21:02)
[2021-06-23] MEDS: GABAPENTIN 600 MG TABLET PO SCH (21:01)
[2021-06-24] MEDS: LEVOTHYROXINE 25 MCG TABLET PO SCH (06:03)
[2021-06-24] MEDS: INSULIN REGULAR 100 UNIT/ML SUBCUT SCH ×5 (06:03→21:49)
[2021-06-24 06:40] LABS: Basophils % 0.5 % (0.0-0.8); Eosinophils # 0.1 10*3/uL (0.0-0.87); Eosinophils % 1.9 % (0.00-10.9); Hematocrit 35.9 VOL% (35.7-47.0); Hemoglobin 11.1 GM/DL (12.0-16.0); Immature Granulocytes % 0.5 %; Immature Granulocytes Absolute 0.03 #; Lymphocytes # 0.7 10*3/uL (1.4-4.0); Lymphocytes % 12.9 % (21.3-54.2); Mean Corpuscular HGB Conc 30.9 GM/DL (32-36); Mean Corpuscular Volume 94.2 FL (87-102); Mean Platelet Volume 9.5 FL (9.6-12.0); Monocytes % 8.3 % (1.7-12.7); Neutrophils % 75.9 % (38.7-73.9); Platelet Count 403 T/CUMM (130-400); Red Blood Count 3.81 MC/CUMM (3.8-5.5); Red Cell Distribution Width 17.1 % (9.3-17.3); White Blood Count 5.7 T/CUMM (4-12)
[2021-06-24 06:59] LABS: Calcium 8.5 MG/DL (8.5-10.1); Osmolality,Calculated 273.8 MOS/KG (273-304); Potassium 3.4 MMOL/L (3.5-5.1)
[2021-06-24] MEDS: ONDANSETRON 4 MG/2 ML VIAL IV PRN ×2 (09:56→18:29)
[2021-06-24] MEDS: APIXABAN 5 MG TABLET PO SCH ×2 (09:57→21:48)
[2021-06-24] MEDS: ASCORBIC ACID 500 MG TABLET PO SCH ×2 (09:57→21:48)
[2021-06-24] MEDS: SODIUM CHLORIDE 1 GM TABLET PO SCH ×2 (09:57→21:48)
[2021-06-24] MEDS: NYSTATIN 500,000 UNIT/5 ML UDCUP SWISH/SWAL SCH ×4 (09:57→21:48)
[2021-06-24] MEDS: POTASSIUM CHLORIDE 20 MEQ TABLET PO SCH (09:57)
[2021-06-24] MEDS: CLOPIDOGREL 75 MG TABLET PO SCH (09:57)
[2021-06-24] MEDS: oxyCODONE/ACETAMINOPHEN 5-325 MG TABLET PO PRN ×2 (09:57→21:49)
[2021-06-24] MEDS: DILTIAZEM CD 120 MG CAPSULE PO SCH (09:58)
[2021-06-24] MEDS: AMIODARONE 200 MG TABLET PO SCH (09:58)
[2021-06-24] MEDS: CYANOCOBALAMIN 1000 MCG/1 ML VIAL IM SCH (10:03)
[2021-06-24] MEDS: FLUTICASONE 50 MCG NASAL SPRAY 16 GM BOTTLE BOTH NARES SCH (22:14)
[2021-06-25 05:33] LABS: Basophils % 0.5 % (0.0-0.8); Eosinophils # 0.2 10*3/uL (0.0-0.87); Hematocrit 35.2 VOL% (35.7-47.0); Immature Granulocytes % 0.3 %; Immature Granulocytes Absolute 0.02 #; Lymphocytes # 0.9 10*3/uL (1.4-4.0); Lymphocytes % 13.8 % (21.3-54.2); Mean Corpuscular HGB Conc 31.3 GM/DL (32-36); Mean Corpuscular Volume 95.7 FL (87-102); Mean Platelet Volume 9.3 FL (9.6-12.0); Monocytes % 9.8 % (1.7-12.7); Neutrophils % 72.6 % (38.7-73.9); Platelet Count 410 T/CUMM (130-400); Red Blood Count 3.68 MC/CUMM (3.8-5.5); Red Cell Distribution Width 17.1 % (9.3-17.3); White Blood Count 6.4 T/CUMM (4-12)
[2021-06-25] MEDS: LEVOTHYROXINE 25 MCG TABLET PO SCH (05:41)
[2021-06-25] MEDS: oxyCODONE/ACETAMINOPHEN 5-325 MG TABLET PO PRN (05:42)
[2021-06-25 05:58] LABS: Calcium 8.4 MG/DL (8.5-10.1); Osmolality,Calculated 274.7 MOS/KG (273-304)
[2021-06-25] MEDS: INSULIN REGULAR 100 UNIT/ML SUBCUT SCH ×2 (08:15→11:32)
[2021-06-25] MEDS ORDERED: FUROSEMIDE 40 MG TABLET PO SCH (09:00)
[2021-06-25] MEDS: lisinopriL 10 MG TABLET PO SCH (09:40)
[2021-06-25] MEDS: POTASSIUM CHLORIDE 20 MEQ TABLET PO SCH (09:40)
[2021-06-25] MEDS: FLUTICASONE 50 MCG NASAL SPRAY 16 GM BOTTLE BOTH NARES SCH (09:40)
[2021-06-25] MEDS: ASCORBIC ACID 500 MG TABLET PO SCH (09:40)
[2021-06-25] MEDS: CYANOCOBALAMIN 1000 MCG/1 ML VIAL IM SCH (09:40)
[2021-06-25] MEDS: SODIUM CHLORIDE 1 GM TABLET PO SCH (09:40)
[2021-06-25] MEDS: NYSTATIN 500,000 UNIT/5 ML UDCUP SWISH/SWAL SCH ×2 (09:40→14:53)
[2021-06-25] MEDS: APIXABAN 5 MG TABLET PO SCH (09:40)
[2021-06-25] MEDS: DILTIAZEM CD 120 MG CAPSULE PO SCH (09:40)
[2021-06-25] MEDS: AMIODARONE 200 MG TABLET PO SCH (09:40)
[2021-06-25] MEDS: CLOPIDOGREL 75 MG TABLET PO SCH (09:40)
[2021-06-25 11:38] VITALS: BP 132/69
[2021-06-25] MEDS: ONDANSETRON 4 MG/2 ML VIAL IV PRN (12:20)
[2021-06-25 15:00] LABS: Vitamin B12 > 2000 PG/ML (211-911)
[2021-06-25] MEDS ORDERED: GABAPENTIN 600 MG TABLET PO SCH (21:00)
== END 2021-06-25 14:56 | disposition home health service (06) | DRG 291 ==
LOC: N.ED 11:06 → N.EDINP 11:06 → SUATTDRO 14:14 → N.5E 16:10 → SUATTDRO 17:12 → N.5E 18:25
PROVIDERS: ADMIT Internal Medicine Geriatric Medicine; ATTEND Internal Medicine

== ENCOUNTER 2022-07-06 10:16 | Inpatient (IN) ==
[2022-07-06] MEDS ORDERED: ONDANSETRON 4 MG/2 ML VIAL IV STA (10:39)
[2022-07-06] MEDS ORDERED: SODIUM CHLORIDE 0.9% 1,000 ML IV STA (10:39)
[2022-07-06 11:33] LABS: Hematocrit 31.2 VOL% (35.7-47.0); Hemoglobin 9.7 GM/DL (12.0-16.0); Immature Granulocytes % 0.6 %; Immature Granulocytes Absolute 0.13 #; Lymphocytes # 0.9 10*3/uL (1.4-4.0); Lymphocytes % 4.4 % (21.3-54.2); Mean Corpuscular HGB Conc 31.1 GM/DL (32-36); Mean Corpuscular Volume 106.8 FL (87-102); Mean Platelet Volume 10.4 FL (9.6-12.0); Monocytes # 1.2 10*3/uL (0.11-0.8); Monocytes % 5.9 % (1.7-12.7); Neutrophils % 89.1 % (38.7-73.9); Platelet Count 291 T/CUMM (130-400); Red Blood Count 2.92 MC/CUMM (3.8-5.5); Red Cell Distribution Width 16.7 % (9.3-17.3); White Blood Count 20.4 T/CUMM (4-12)
[2022-07-06 11:46] LABS: Alanine Aminotransferase 22 U/L (13-56); Albumin 3.7 G/DL (3.4-5.0); Alkaline Phosphatase 107 U/L (45-117); Amylase 21 U/L (25-115); Aspartate Amino Transferase 24 U/L (0-37); Blood Urea Nitrogen 35 MG/DL (7-18); Calcium 8.7 MG/DL (8.5-10.1); Carbon Dioxide 26 MMOL/L (21-32); Chloride 107 MMOL/L (98-107); Glucose 172 MG/DL (74-106); Osmolality,Calculated 290.4 MOS/KG (273-304); Sodium 140 MMOL/L (136-145); Total Protein 6.9 G/DL (6.4-8.2)
[2022-07-06 11:52] LABS: Anisocytosis 1+; Band Neutrophils 4 % (0-10); Eosinophils 1 % (0-10); Hypochromia Slight; Lymphocytes 5 % (20-55); Ovalocytes Slight; Total Cells Counted 100
[2022-07-06] MEDS ORDERED: cefTRIAXone 1,000 MG in SODIUM CHLORIDE 0.9% 100 ML IV STA (12:28)
[2022-07-06] MEDS ORDERED: SODIUM CHLORIDE 0.9% 500 ML IV STA (12:28)
[2022-07-06 13:09] LABS: Hyaline Casts,Urine 1 /LPF (0-3); Mucus,Urine Occasional /LPF (Occasional); Squamous Epithelial Cell,Urine Occasional /HPF (0-10)
[2022-07-06 13:11] LABS: Glucose,Urine (UA) Negative (Negative); Ketones,Urine Negative (Negative); Nitrite,Urine Negative (Negative); Protein,Urine Trace mg/dL (Negative); Urine Appearance Clear (Clear); Urine Color Yellow (Yellow)
[2022-07-06 13:12] LABS: Bilirubin,Urine Negative (Negative); Blood, Urine Negative (Negative); Urine Urobilinogen 0.2 eU/dL (<2.0)
[2022-07-06] MEDS ORDERED: ACETAMINOPHEN 325 MG TABLET PO PRN (16:38)
[2022-07-06] MEDS ORDERED: ALBUTEROL 2.5 MG/3 ML NEB RESP TX PRN (16:40)
[2022-07-06] MEDS: POLYETHYLENE GLYCOL POWDER 17 GM PACK PO SCH (17:42)
[2022-07-06] MEDS: SODIUM CHLORIDE 0.9% 1,000 ML IV SCH (17:42)
[2022-07-06] MEDS: PANTOPRAZOLE 40 MG TABLET PO SCH (17:43)
[2022-07-06] MEDS: APIXABAN 2.5 MG TABLET PO SCH (20:57)
[2022-07-06] MEDS: GABAPENTIN 600 MG TABLET PO SCH (20:57)
[2022-07-06] MEDS: oxyCODONE/ACETAMINOPHEN 5-325 MG TABLET PO PRN (20:57)
[2022-07-06] MEDS: INSULIN LISPRO 100 UNIT/ML SUBCUT SCH (22:15)
[2022-07-07] MEDS: metroNIDAZOLE INJ 500 MG/100 ML PREMIX IV SCH ×3 (00:34→16:55)
[2022-07-07 05:50] LABS: Basophils % 0.1 % (0.0-0.8); Hematocrit 28.5 VOL% (35.7-47.0); Immature Granulocytes % 0.6 %; Immature Granulocytes Absolute 0.12 #; Lymphocytes % 5.1 % (21.3-54.2); Mean Corpuscular HGB Conc 31.6 GM/DL (32-36); Mean Corpuscular Volume 104.8 FL (87-102); Monocytes # 1.1 10*3/uL (0.11-0.8); Monocytes % 6.1 % (1.7-12.7); Neutrophils % 88.1 % (38.7-73.9); Platelet Count 191 T/CUMM (130-400); Red Blood Count 2.72 MC/CUMM (3.8-5.5); Red Cell Distribution Width 16.8 % (9.3-17.3); White Blood Count 18.7 T/CUMM (4-12)
[2022-07-07 06:12] LABS: Albumin 3.1 G/DL (3.4-5.0); Bilirubin,Total 0.4 MG/DL (0.20-1.00); Calcium 8.2 MG/DL (8.5-10.1); Osmolality,Calculated 285.4 MOS/KG (273-304); Total Protein 5.8 G/DL (6.4-8.2)
[2022-07-07] MEDS ORDERED: NON-FORMULARY MEDICATION (Omeprazole 20 mg capsule,delayed release(DR/EC)) PO SCH (09:00)
[2022-07-07] MEDS ORDERED: GLUCAGON 1 MG VIAL IM PRN (09:18)
[2022-07-07] MEDS ORDERED: DEXTROSE 10% 250 ML BAG IV PRN (09:18)
[2022-07-07] MEDS: POLYETHYLENE GLYCOL POWDER 17 GM PACK PO SCH (09:52)
[2022-07-07] MEDS: DILTIAZEM CD 120 MG CAPSULE PO SCH (09:53)
[2022-07-07] MEDS: POLYVINYL 0.5%/POVIDONE 0.6% OPH SOLN 15 ML BOTTLE BOTH EYES SCH (09:53)
[2022-07-07] MEDS: ASCORBIC ACID 500 MG TABLET PO SCH (09:53)
[2022-07-07] MEDS: APIXABAN 2.5 MG TABLET PO SCH ×2 (09:53→21:51)
[2022-07-07] MEDS: PANTOPRAZOLE 40 MG TABLET PO SCH (09:53)
[2022-07-07] MEDS: INSULIN LISPRO 100 UNIT/ML SUBCUT SCH ×4 (09:54→21:49)
[2022-07-07] MEDS: SODIUM CHLORIDE 0.9% 1,000 ML IV SCH (11:02)
[2022-07-07] MEDS: cefTRIAXone 1,000 MG in SODIUM CHLORIDE 0.9% 100 ML IV SCH (11:03)
[2022-07-07 11:15] LABS: % Iron Saturation 4.7 % (18-50); Ferritin 139.3 ng/mL (8-252)
[2022-07-07] MEDS: DOCUSATE SODIUM 100 MG CAPSULE PO SCH (11:26)
[2022-07-07] MEDS: ONDANSETRON 4 MG/2 ML VIAL IV PRN (11:55)
[2022-07-07] MEDS: FERRIC GLUCONATE COMPLEX 125 MG in SODIUM CHLORIDE 0.9% 100 ML IV SCH (15:00)
[2022-07-07] MEDS ORDERED: FERROUS SULFATE 325 MG TABLET PO SCH (21:00)
[2022-07-07] MEDS: oxyCODONE/ACETAMINOPHEN 5-325 MG TABLET PO PRN (21:50)
[2022-07-07] MEDS: GABAPENTIN 600 MG TABLET PO SCH (21:52)
[2022-07-08] MEDS: metroNIDAZOLE INJ 500 MG/100 ML PREMIX IV SCH ×3 (00:20→15:42)
[2022-07-08 05:53] LABS: Basophils % 0.1 % (0.0-0.8); Eosinophils # 0.1 10*3/uL (0.0-0.87); Eosinophils % 0.6 % (0.00-10.9); Hematocrit 30.9 VOL% (35.7-47.0); Hemoglobin 10.3 GM/DL (12.0-16.0); Immature Granulocytes % 1.1 %; Immature Granulocytes Absolute 0.18 #; Lymphocytes # 0.9 10*3/uL (1.4-4.0); Mean Corpuscular HGB Conc 33.3 GM/DL (32-36); Mean Corpuscular Volume 103.3 FL (87-102); Mean Platelet Volume 11.9 FL (9.6-12.0); Monocytes % 5.7 % (1.7-12.7); NRBC # 0.11 10*3/uL; Neutrophils % 87.5 % (38.7-73.9); Platelet Count 129 T/CUMM (130-400); Red Blood Count 2.99 MC/CUMM (3.8-5.5); Red Cell Distribution Width 16.9 % (9.3-17.3); White Blood Count 17.1 T/CUMM (4-12)
[2022-07-08 06:09] LABS: Calcium 8.1 MG/DL (8.5-10.1); Osmolality,Calculated 289.8 MOS/KG (273-304); Potassium 4.5 MMOL/L (3.5-5.1)
[2022-07-08] MEDS: INSULIN LISPRO 100 UNIT/ML SUBCUT SCH ×4 (08:40→20:38)
[2022-07-08] MEDS: SODIUM CHLORIDE 0.9% 1,000 ML IV SCH ×3 (08:43→15:48)
[2022-07-08] MEDS: POLYVINYL 0.5%/POVIDONE 0.6% OPH SOLN 15 ML BOTTLE BOTH EYES SCH (08:46)
[2022-07-08] MEDS: cefTRIAXone 1,000 MG in SODIUM CHLORIDE 0.9% 100 ML IV SCH (08:51)
[2022-07-08] MEDS: DILTIAZEM CD 120 MG CAPSULE PO SCH (08:53)
[2022-07-08] MEDS: APIXABAN 2.5 MG TABLET PO SCH ×2 (08:53→20:24)
[2022-07-08] MEDS: DOCUSATE SODIUM 100 MG CAPSULE PO SCH (08:54)
[2022-07-08] MEDS: PANTOPRAZOLE 40 MG TABLET PO SCH (08:54)
[2022-07-08] MEDS: ASCORBIC ACID 500 MG TABLET PO SCH (08:55)
[2022-07-08] MEDS: POLYETHYLENE GLYCOL POWDER 17 GM PACK PO SCH (08:55)
[2022-07-08] MEDS: FERRIC GLUCONATE COMPLEX 125 MG in SODIUM CHLORIDE 0.9% 100 ML IV SCH (10:56)
[2022-07-08] MEDS: VANCOMYCIN INJ 1,000 MG in SODIUM CHLORIDE 0.9% 250 ML IV SCH (11:52)
[2022-07-08] MEDS ORDERED: ALUMINUM/MAGNES/SIMETH MAX STR 30 ML UDCUP PO PRN (16:38)
[2022-07-08] MEDS: ONDANSETRON 4 MG/2 ML VIAL IV PRN (20:23)
[2022-07-08] MEDS: GABAPENTIN 600 MG TABLET PO SCH (20:24)
[2022-07-09] MEDS: metroNIDAZOLE INJ 500 MG/100 ML PREMIX IV SCH ×3 (00:24→16:24)
[2022-07-09 05:40] LABS: Basophils % 0.1 % (0.0-0.8); Eosinophils # 0.1 10*3/uL (0.0-0.87); Hematocrit 29.9 VOL% (35.7-47.0); Hemoglobin 9.2 GM/DL (12.0-16.0); Immature Granulocytes % 0.8 %; Immature Granulocytes Absolute 0.11 #; Lymphocytes % 7.5 % (21.3-54.2); Mean Corpuscular HGB Conc 30.8 GM/DL (32-36); Monocytes # 0.9 10*3/uL (0.11-0.8); Monocytes % 6.8 % (1.7-12.7); NRBC # 0.04 10*3/uL; Neutrophils % 83.8 % (38.7-73.9); Platelet Count 190 T/CUMM (130-400); Red Blood Count 2.82 MC/CUMM (3.8-5.5); Red Cell Distribution Width 16.7 % (9.3-17.3); White Blood Count 13.8 T/CUMM (4-12)
[2022-07-09] MEDS: SODIUM CHLORIDE 0.9% 1,000 ML IV SCH ×2 (05:52→21:46)
[2022-07-09 06:03] LABS: Calcium 7.8 MG/DL (8.5-10.1)
[2022-07-09] MEDS: INSULIN LISPRO 100 UNIT/ML SUBCUT SCH ×4 (07:41→21:46)
[2022-07-09] MEDS: POLYETHYLENE GLYCOL POWDER 17 GM PACK PO SCH (08:51)
[2022-07-09] MEDS: POLYVINYL 0.5%/POVIDONE 0.6% OPH SOLN 15 ML BOTTLE BOTH EYES SCH (08:53)
[2022-07-09] MEDS: PANTOPRAZOLE 40 MG TABLET PO SCH (08:56)
[2022-07-09] MEDS: ASCORBIC ACID 500 MG TABLET PO SCH (08:56)
[2022-07-09] MEDS: APIXABAN 2.5 MG TABLET PO SCH ×2 (08:56→21:45)
[2022-07-09] MEDS: cefTRIAXone 1,000 MG in SODIUM CHLORIDE 0.9% 100 ML IV SCH (08:56)
[2022-07-09] MEDS: DOCUSATE SODIUM 100 MG CAPSULE PO SCH (08:56)
[2022-07-09] MEDS: DILTIAZEM CD 120 MG CAPSULE PO SCH (08:56)
[2022-07-09] MEDS: FERRIC GLUCONATE COMPLEX 125 MG in SODIUM CHLORIDE 0.9% 100 ML IV SCH (09:39)
[2022-07-09] MEDS: VANCOMYCIN INJ 1,000 MG in SODIUM CHLORIDE 0.9% 250 ML IV SCH (12:07)
[2022-07-09] MEDS: GABAPENTIN 600 MG TABLET PO SCH (21:45)
[2022-07-10] MEDS: metroNIDAZOLE INJ 500 MG/100 ML PREMIX IV SCH ×2 (00:28→08:54)
[2022-07-10 05:34] LABS: Basophils % 0.1 % (0.0-0.8); Eosinophils # 0.2 10*3/uL (0.0-0.87); Eosinophils % 2.2 % (0.00-10.9); Hematocrit 30.3 VOL% (35.7-47.0); Hemoglobin 9.1 GM/DL (12.0-16.0); Immature Granulocytes % 1.3 %; Immature Granulocytes Absolute 0.14 #; Lymphocytes # 1.2 10*3/uL (1.4-4.0); Lymphocytes % 10.8 % (21.3-54.2); Mean Corpuscular Volume 108.6 FL (87-102); Mean Platelet Volume 11.2 FL (9.6-12.0); Monocytes % 9.2 % (1.7-12.7); NRBC # 0.03 10*3/uL; Neutrophils % 76.4 % (38.7-73.9); Platelet Count 211 T/CUMM (130-400); Red Blood Count 2.79 MC/CUMM (3.8-5.5); Red Cell Distribution Width 17.2 % (9.3-17.3); White Blood Count 10.7 T/CUMM (4-12)
[2022-07-10 05:59] LABS: Calcium 8.6 MG/DL (8.5-10.1); Potassium 4.1 MMOL/L (3.5-5.1)
[2022-07-10] MEDS: DILTIAZEM CD 120 MG CAPSULE PO SCH (08:52)
[2022-07-10] MEDS: PANTOPRAZOLE 40 MG TABLET PO SCH (08:52)
[2022-07-10] MEDS: APIXABAN 2.5 MG TABLET PO SCH (08:52)
[2022-07-10] MEDS: ASCORBIC ACID 500 MG TABLET PO SCH (08:52)
[2022-07-10] MEDS: INSULIN LISPRO 100 UNIT/ML SUBCUT SCH ×3 (08:52→17:07)
[2022-07-10] MEDS: DOCUSATE SODIUM 100 MG CAPSULE PO SCH (08:52)
[2022-07-10] MEDS: oxyCODONE/ACETAMINOPHEN 5-325 MG TABLET PO PRN ×2 (08:53→15:03)
[2022-07-10] MEDS: POLYVINYL 0.5%/POVIDONE 0.6% OPH SOLN 15 ML BOTTLE BOTH EYES SCH (08:53)
[2022-07-10] MEDS: POLYETHYLENE GLYCOL POWDER 17 GM PACK PO SCH (08:54)
[2022-07-10] MEDS: cefTRIAXone 1,000 MG in SODIUM CHLORIDE 0.9% 100 ML IV SCH (10:19)
[2022-07-10] MEDS: FERRIC GLUCONATE COMPLEX 125 MG in SODIUM CHLORIDE 0.9% 100 ML IV SCH (10:54)
[2022-07-10] MEDS: SODIUM CHLORIDE 0.9% 1,000 ML IV SCH (15:02)
[2022-07-10 15:32] VITALS: BP 151/70
== END 2022-07-10 17:01 | disposition home health service (06) | DRG 603 ==
LOC: N.2W 10:16 → N.ED 10:16 → SUATTDRO 16:37 → N.2W 18:24 → SUATTDRO 07-08 08:03 → N.3E 07-09 11:46
PROVIDERS: ADMIT Internal Medicine; ATTEND Internal Medicine